=== PATIENT | female | born 1945 | race Caucasian/White ===

== ENCOUNTER 2017-10-06 12:06 | Emergency (ER) | payer OTHER ==
--- NOTE | 2017-10-06 15:40 | RAD REPORT ---
EXAM DESCRIPTION: CT - Pelvis Wo Cont - 10/06/2017 3:25 pm CLINICAL HISTORY: Trauma, right hip pain, radiculopathy. COMPARISON: None. TECHNIQUE: All CT scans are performed using dose optimization technique as appropriate and may inclu de automated exposure control or mA/KV adjustment according to patient size. FINDINGS: The bones are diffusely osteopenic. A small nonspecific sclerotic lesion in the S4 level i s identified. No acute fracture is seen. An osteochondroma is noted projecting from the posterior aspect of the rig ht iliac wing. Prominent lower lumbar degenerative changes noted with 11 mm anterolisthesis of L5 on S1. Orthopedic hardware is present in the lower lumbar vacuum disc degeneration is seen. Moderate fecal retention in the colon. IMPRESSION: Moderate lower lumbar spondylosis with postsurgical hardware in place. 11 mm degenerativ e anterolisthesis of L5 on S1 seen. Right iliac wing osteochondroma.
[2017-10-06] MEDS ORDERED: FENTANYL CITR 100 MCG/2 ML ONE (15:41)
[2017-10-06] MEDS ORDERED: LORAZEPAM 1 MG TABLET ONE (15:41)
--- NOTE | 2017-10-06 15:45 | RAD REPORT ---
EXAM DESCRIPTION: CT - Spine Lumbar Wo Con - 10/06/2017 3:25 pm CLINICAL HISTORY: Radiculopathy. COMPARISON: None. TECHNIQUE: Axial noncontrast CT imaging of the lumbar spine was performed with coronal and sagittal re-formatted images. All CT scans are performed using dose optimization technique as appropriate and may include automated exposure control or mA/KV adjustment according to patient size. FINDINGS: No acute lumbar spine fracture seen. Vacuum disc degeneration is present at L3-4, L4-5 and L5-S1. 10-11 mm degenerative anterolisthesis of L5 on S1 is seen. Orthopedic hardware is in place at L4-5 with postsurgical changes present. Streak artifact at these l evels limits intra-canal assessment. Aortic atherosclerosis noted. 2 cm left adrenal lesion with negative Hounsfield units noted, likely a benign adenoma. IMPRESSION: Moderate postsurgical and degenerative full lower lumbar spine findings are seen. 10-11 mm degenerative anterolisthesis of L5 on S1 is present. Intra-canal assessment is limited by streak a rtifact.
--- NOTE | 2017-10-06 16:06 | ER ---
Nurse's Notes [facility] Name: Devi Zimmerman Age: 72 yrs Sex: Female : 1945 Arrival Date: 10/06/2017 Time: 12:10 Bed 19 Private MD: Courtney Qiu Diagnosis: Low back pain;Radiculopathy, lumbar region Presentation: 10/06 12:18 Presenting complaint: Patient states: "I have right hip pain radiating down my right aa5 leg". Pt states " I've had surgery on my hip and my back so maybe I hurt myself without knowing it". Pt denies known injury. Transition of care: patient was not received from another setting of care. Onset of symptoms was October 05, 2017. Risk Assessment: Do you want to hurt yourself or someone else? Patient reports no desire to harm self or others. Initial Sepsis Screen: Does the patient meet any 2 criteria? No. Patient's initial sepsis screen is negative. Does the patient have a suspected source of infection? No. Patient's initial sepsis screen is negative. Care prior to arrival: None. 12:18 Method Of Arrival: Wheelchair aa5 12:18 Acuity: LOBO 4 aa5 Triage Assessment: 17:07 General: Appears. ae1 Historical: - Allergies: 12:21 Codeine; aa5 - PMHx: 12:21 ARF; Diabetes - NIDDM; Hepatitis; Hypertension; Arthritis; aa5 - PSHx: 12:21 back surgery; Hysterectomy; cataract surgery; aa5 - Immunization history:: Pneumococcal vaccine is up to date, Flu vaccine is up to date. - Social history:: Smoking status: Patient uses tobacco products, smokes one-half pack cigarettes per day. - Ebola Screening: : No symptoms or risks identified at this time. Screenin:06 Abuse screen: Denies threats or abuse. Nutritional screening: No deficits noted. ae1 Tuberculosis screening: No symptoms or risk factors identified. Fall Risk None identified. Vital Signs: 12:21 BP 113 / 94; Pulse 88; Resp 16 S; Temp 97.0(TE); Pulse Ox 96% on R/A; Weight 77.56 kg aa5 (R); Height 5 ft. 9 in. (175.26 cm) (R); Pain 10/10; 17:02 BP 142 / 79; Pulse 66; Resp 16; Pulse Ox 98% on R/A; ae1 12:21 Body Mass Index 25.25 (77.56 kg, 175.26 cm) aa5 ED Course: 12:10 Patient arrived in ED. mr 12:10 Coutrney Qiu MD is Private Physician. mr 12:20 Triage completed. aa5 12:20 Arm band placed on. aa5 13:00 Placed in gown. Bed in low position. Call light in reach. Side rails up X 1. Adult w/ ae1 patient. Pulse ox on. NIBP on. 13:55 Melly Johnson FNP-C is PHCP. snw 13:55 Stu Bean MD is Attending Physician. snw 14:43 Carlos Chávez, RN is Primary Nurse. ae1 15:[address] via stretcher. nj 15:25 CT Pelvis wo Cont In Process Unspecified. EDMS 15:25 CT Lumbar Spine Wo Con In Process Unspecified. EDMS 16:05 Courtney Qiu MD is Referral Physician. snw Administered Medications: 15:48 Drug: fentaNYL (PF) 50 mcg Route: IM; Site: right deltoid; ae1 17:03 Follow up: Response: Pain is decreased ae1 15:48 Drug: Ativan 1 mg Route: PO; ae1 17:03 Follow up: Response: Anxiety decreased ae1 Outcome: 16:05 Discharge ordered by . snw 17:07 Patient left the ED. dm5 Signatures: Dispatcher [employer] EDWI Alethea Mitchell RN RN dm5 Melly Johnson FNP-C ART GLASS DESIGNER-Jason Kerry Dunham mr BaltazarTorrie, RN RN aa5 Carlos Chávez, RN RN ae1 Armand Sexton ok
--- NOTE | 2017-10-06 16:06 | EDPHYS ---
Physician Documentation [facility] Name: Devi Zimmerman Age: 72 yrs Sex: Female : 1945 Arrival Date: 10/06/2017 Time: 12:10 Bed 19 Private MD: Courtney Qiu ED Physician Stu Bean HPI: 10/06 14:51 This 72 yrs old Female presents to ER via Wheelchair with complaints of Hip snw Pain, Leg Pain. 14:51 The patient or guardian reports decreased range of motion, pain. that occurred at home, snw holding right leg in flexed position, pain with radiation to right calf. The complaints affect the right low back. Onset: The symptoms/episode began/occurred suddenly, today. Modifying factors: The symptoms are alleviated by nothing, the symptoms are aggravated by extension, weight bearing. Severity of symptoms: At their worst the symptoms were moderate, severe. The patient has experienced similar episodes in the past, multiple times. has appt with Dr. Rojas. Historical: - Allergies: 12:21 Codeine; aa5 - PMHx: 12:21 ARF; Diabetes - NIDDM; Hepatitis; Hypertension; Arthritis; aa5 - PSHx: 12:21 back surgery; Hysterectomy; cataract surgery; aa5 - Immunization history:: Pneumococcal vaccine is up to date, Flu vaccine is up to date. - Social history:: Smoking status: Patient uses tobacco products, smokes one-half pack cigarettes per day. - Ebola Screening: : No symptoms or risks identified at this time. ROS: 14:50 Constitutional: Negative for fever, chills, and weight loss, Eyes: Negative for injury, snw pain, redness, and discharge, ENT: Negative for injury, pain, and discharge, Neck: Negative for injury, pain, and swelling, Cardiovascular: Negative for chest pain, palpitations, and edema, Respiratory: Negative for shortness of breath, cough, wheezing, and pleuritic chest pain, Abdomen/GI: Negative for abdominal pain, nausea, vomiting, diarrhea, and constipation, Back: Negative for injury and pain, pain to right upper hip and down to right calf : Negative for injury, bleeding, discharge, and swelling, Skin: Negative for injury, rash, and discoloration, Neuro: Negative for headache, weakness, numbness, tingling, and seizure. Exam: 14:49 Constitutional: This is a well developed, well nourished patient who is awake, alert, snw and in no acute distress. Head/Face: Normocephalic, atraumatic. Eyes: Pupils equal round and reactive to light, extra-ocular motions intact. Lids and lashes normal. Conjunctiva and sclera are non-icteric and not injected. Cornea within normal limits. Periorbital areas with no swelling, redness, or edema. ENT: Nares patent. No nasal discharge, no septal abnormalities noted. Tympanic membranes are normal and external auditory canals are clear. Oropharynx with no redness, swelling, or masses, exudates, or evidence of obstruction, uvula midline. Mucous membranes moist. Neck: Trachea midline, no thyromegaly or masses palpated, and no cervical lymphadenopathy. Supple, full range of motion without nuchal rigidity, or vertebral point tenderness. No Meningismus. Chest/axilla: Normal chest wall appearance and motion. Nontender with no deformity. No lesions are appreciated. Cardiovascular: Regular rate and rhythm with a normal S1 and S2. No gallops, murmurs, or rubs. Normal PMI, no JVD. No pulse deficits. Respiratory: Lungs have equal breath sounds bilaterally, clear to auscultation and percussion. No rales, rhonchi or wheezes noted. No increased work of breathing, no retractions or nasal flaring. Abdomen/GI: Soft, non-tender, with normal bowel sounds. No distension or tympany. No guarding or rebound. No evidence of tenderness throughout. Skin: Warm, dry with normal turgor. Normal color with no rashes, no lesions, and no evidence of cellulitis. MS/ Extremity: Pulses equal, no cyanosis. Neurovascular intact. Full, normal range of motion. Neuro: Awake and alert, GCS 15, oriented to person, place, time, and situation. Cranial nerves II-XII grossly intact. Motor strength 5/5 in all extremities. Sensory grossly intact. Cerebellar exam normal. Normal gait. Psych: Awake, alert, with orientation to person, place and time. Behavior, mood, and affect are within normal limits. 14:49 Back: pain, that is moderate, of the lumbar area, ROM is painful, with extension, muscle spasm, is appreciated in the right low back. Vital Signs: 12:21 BP 113 / 94; Pulse 88; Resp 16 S; Temp 97.0(TE); Pulse Ox 96% on R/A; Weight 77.56 kg aa5 (R); Height 5 ft. 9 in. (175.26 cm) (R); Pain 10/10; 17:02 BP 142 / 79; Pulse 66; Resp 16; Pulse Ox 98% on R/A; ae1 12:21 Body Mass Index 25.25 (77.56 kg, 175.26 cm) aa5 MDM: 14:41 Patient medically screened. snw 16:06 Data reviewed: vital signs, nurses notes. Data interpreted: Pulse oximetry: on room air snw is 96 %. Interpretation: acceptable. Counseling: I had a detailed discussion with the patient and/or guardian regarding: the historical points, exam findings, and any diagnostic results supporting the discharge/admit diagnosis, the presence of at least one elevated blood pressure reading (>120/80) during this emergency department visit, radiology results, the need for outpatient follow up, to return to the emergency department if symptoms worsen or persist or if there are any questions or concerns that arise at home. 10/06 14:47 Order name: CT Pelvis wo Cont; Complete Time: 15:43 snw 10/06 14:47 Order name: CT Lumbar Spine Wo Con; Complete Time: 15:48 snw Administered Medications: 15:48 Drug: fentaNYL (PF) 50 mcg Route: IM; Site: right deltoid; ae1 17:03 Follow up: Response: Pain is decreased ae1 15:48 Drug: Ativan 1 mg Route: PO; ae1 17:03 Follow up: Response: Anxiety decreased ae1 Disposition: 10/07 08:15 Co-signature as Attending Physician, Stu Bean MD I agree with the assessment and franco plan of care. Disposition: 10/06/17 16:05 Discharged to Home. Impression: Low back pain, Radiculopathy, lumbar region. - Condition is Stable. - Discharge Instructions: Back Pain, Adult, Chronic Back Pain, Lumbosacral Radiculopathy, Heat Therapy. - Prescriptions for orphenadrine citrate 100 mg Oral Tablet Sustained Release - take 1 tablet by ORAL route 2 times per day As needed; 20 tablet. Prednisone 20 mg Oral Tablet - take 1 tablet by ORAL route once daily for 5 days; 5 tablet. Tramadol 50 mg Oral Tablet - take 1 tablet by ORAL route every 8 hours as needed; 12 tablet. - Medication Reconciliation Form, Thank You Letter, Antibiotic Education, Prescription Opioid Use form. - Follow up: Courtney Qiu MD; When: Tomorrow; Reason: Recheck today's complaints, Continuance of care, Re-evaluation by your physician. Follow up: Emergency Department; When: As needed; Reason: Worsening of condition. Signatures: Dispatcher [employer] Alethea Escalante, RN RN dm5 Stu Bean MD MD cha Therrien, Shelly, PAN WASHER-C PAN WASHER-Csnw Torrie Baltazar, RN RN aa5 Carlos Chávez RN RN ae1 Corrections: (The following items were deleted from the chart) 10/06 17:07 16:05 10/06/2017 16:05 Discharged to Home. Impression: Low back pain; Radiculopathy, dm5 lumbar region. Condition is Stable. Forms are Medication Reconciliation Form, Thank You Letter, Antibiotic Education, Prescription Opioid Use. Follow up: Courtney Qiu; When: Tomorrow; Reason: Recheck today's complaints, Continuance of care, Re-evaluation by your physician. Follow up: Emergency Department; When: As needed; Reason: Worsening of condition. snw
== END 2017-10-06 17:07 | disposition home or self-care (01) ==
LOC: ER 12:06
DX: M54.16 Radiculopathy, lumbar region (principal); I10 Essential (primary) hypertension; Z88.5 Allergy status to narcotic agent; F17.210 Nicotine dependence, cigarettes, uncomplicated
CPT/HCPCS: 72131; 72192; J3010; 96372; 99284

== ENCOUNTER 2017-12-01 17:09 | Emergency (ER) | payer OTHER ==
[2017-12-01 19:40] LABS: Urine Blood 2+ (NEG); Urine Glucose NEGATIVE (NEG); Urine Protein 2+ (NEG)
[2017-12-01 19:48] LABS: Absolute Lymphocytes (CBC) 1.2 K/uL (0.7-4.9); Absolute Monocytes 1.3 K/uL (0.1-1.3); Absolute Neutrophil 12.7 K/uL (1.8-8.0); Basophils % 0.1 % (0-1.3); Eosinophils % 1.7 % (0-4.4); Hematocrit 41.4 % (36.0-45.0); Lymphocytes % 7.5 % (15.3-44.8); MCH 30.1 pg (27.0-35.0); MCV 91.8 fL (80-100); MPV 8.8 fL (7.6-11.3); Monocytes % 8.5 % (3.3-12.3); RBC Red Blood Cell Count 4.51 M/uL (3.86-4.86)
[2017-12-01 19:49] LABS: Urine Bacteria <20 /HPF (<20); Urine Culture Reflex Order NOT NEEDED
[2017-12-01 20:07] LABS: Albumin 2.3 g/dL (3.4-5.0); Bilirubin Total 0.2 mg/dL (0.2-1.0); Potassium 4.1 mmol/L (3.5-5.1); Protein, Total 7.7 g/dL (6.4-8.2); T3 Free 0.67 pg/mL (2.18-3.98); Thyroid Stimulating Hormone 1.39 uIU/mL (0.36-3.74)
--- NOTE | 2017-12-01 20:52 | RAD REPORT ---
EXAM DESCRIPTION: CT - Soft Tissue Neck W/Contr CLINICAL HISTORY: neck pain COMPARISON: No comparisons TECHNIQUE All CT scans are performed using dose optimization technique as appropriate and may includ e automated exposure control or mA/KV adjustment according to patient size. FINDINGS: Nasopharyngeal tissues are normal in appearance. Fossa Rosenmller are normal. Parapharyngeal fat triangles are symmetric. Tongue base structures are normal. Epiglottis and aryepiglottic folds are normal. Piriform sinuses are well aerated. The vocal cords are normal in appearance. Salivary glands are normal in appearance. Upper lung mitchell are clear. Moderate atherosclerosis of both carotid bulbs. IMPRESSION: No acute or worrisome abnormality is detected.
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
--- NOTE | 2017-12-01 21:17 | ER ---
Nurse's Notes [facility] Name: Devi Zimmerman Age: 72 yrs Sex: Female : 1945 Arrival Date: 12/01/2017 Time: 17:12 Bed 26 Private MD: Courtney Qiu Diagnosis: Acute laryngopharyngitis;Hypothyroidism, unspecified Presentation: 12/01 17:13 Presenting complaint: Patient states: im sweating unreal for the past 2 days, headache; hj denies fever, reports throat pain; reports fatigues for couple of weeks; S/P back surgery November 11; denies nausea and vomiting;. Transition of care: patient was not received from another setting of care. Onset of symptoms was December 01, 2017. Risk Assessment: Do you want to hurt yourself or someone else? Patient reports no desire to harm self or others. Initial Sepsis Screen: Does the patient meet any 2 criteria? No. Patient's initial sepsis screen is negative. Does the patient have a suspected source of infection? No. Patient's initial sepsis screen is negative. Care prior to arrival: None. 17:13 Method Of Arrival: Ambulatory 17:13 Acuity: LOBO 3 Triage Assessment: 17:19 General: Appears in no apparent distress. uncomfortable, Behavior is calm, cooperative, hj appropriate for age. Historical: - Allergies: 17:18 Codeine; hj - Home Meds: 17:18 acyclovir 800 mg Oral tab 1 tab 4 times per day [Active]; gemfibrozil 600 mg Oral tab 1 hj tab 2 times per day [Active]; carvedilol 6.25 mg oral tab 1 tab 2 times per day [Active]; Onglyza 5 mg oral tab 1 tab once daily [Active]; methocarbamol 500 mg oral tab 2 tabs nightly [Active]; amitriptyline 75 mg Oral tab 1 tab once daily [Active]; alendronate 35 mg oral tab 1 tab once wkly [Active]; ranitidine HCl 150 mg Oral cap 1 cap 2 times per day [Active]; diclofenac sodium 50 mg oral TbEC 1 tab 3 times per day [Active]; - PMHx: 17:18 ARF; Arthritis; Diabetes - NIDDM; Hepatitis; Hypertension; hj - PSHx: 17:18 back surgery; Hysterectomy; cataract surgery; hj - Immunization history:: Adult Immunizations up to date. - Social history:: Smoking status: Patient/guardian denies using tobacco, Patient/guardian denies using alcohol. - Ebola Screening: : Patient negative for fever greater than or equal to 101.5 degrees Fahrenheit, and additional compatible Ebola Virus Disease symptoms Patient denies exposure to infectious person Patient denies travel to an Ebola-affected area in the 21 days before illness onset. Screenin:19 Abuse screen: Denies threats or abuse. Denies injuries from another. Nutritional hj screening: No deficits noted. Tuberculosis screening: No symptoms or risk factors identified. Fall Risk None identified. Assessment: 17:19 Pain: Complains of pain in throat, head. Respiratory: Airway is patent Respiratory hj effort is even, unlabored, Respiratory pattern is regular, symmetrical, Breath sounds are clear. EENT: 17:20 EENT: Throat. hj 21:41 Reassessment: Patient appears in no apparent distress at this time. Patient and/or kr2 family updated on plan of care and expected duration. Pain level reassessed. Patient is alert, oriented x 3, equal unlabored respirations, skin warm/dry/pink. Patient denies pain at this time. Vital Signs: 17:20 BP 140 / 93; Pulse 86; Resp 18; Temp 98.7(O); Pulse Ox 100% on R/A; Weight 74.84 kg; hj Height 5 ft. 9 in. (175.26 cm); Pain 4/10; 19:30 BP 140 / 103 LA Supine (auto/reg); Pulse 89; Pulse Ox 100% on R/A; jp3 20:12 BP 125 / 75; Pulse 88; Resp 18; Pulse Ox 100% on R/A; Pain 2/10; mg2 21:42 BP 119 / 71; Pulse 86; Resp 16; Pulse Ox 99% on R/A; kr2 17:20 Body Mass Index 24.37 (74.84 kg, 175.26 cm) ED Course: 17:12 Patient arrived in ED. rg4 17:12 Courtney Qiu MD is Private Physician. rg4 17:15 Triage completed. hj 17:19 Arm band placed on right wrist. hj 17:19 Patient has correct armband on for positive identification. Bed in low position. Call light in reach. Side rails up X 1. 18:31 Michael Treadwell MD is Attending Physician. ps1 19:25 Initial lab(s) drawn, by ED staff, sent to lab. Urine collected: clean catch specimen, jp3 clear, arelis colored. 19:26 Rick Rock, RN is Primary Nurse. mg2 19:29 Inserted saline lock: 22 gauge in left forearm, using aseptic technique. Blood mg2 collected. 20:[address] sw 20:23 CT Soft Tissue Neck W/contr In Process Unspecified. EDMS 21:15 Courtney Qiu MD is Referral Physician. ps1 21:42 No provider procedures requiring assistance completed. IV discontinued, intact, kr2 bleeding controlled, No redness/swelling at site. Pressure dressing applied. Administered Medications: No medications were administered Outcome: 21:16 Discharge ordered by MD. ps1 21:43 Discharged to home ambulatory, with family. kr2 21:43 Condition: good 21:43 Discharge instructions given to patient, Instructed on discharge instructions, follow up and referral plans. medication usage, Demonstrated understanding of instructions, follow-up care, medications, Prescriptions given X 1. 21:43 Patient left the ED. kr2 Signatures: Dispatcher [employer] EDMS ParthSharyn Fernando Huynh RN RN Karen Jackson rg4 Josi Arita, RN RN kr2 Michael Treadwell MD MD ps1 Rick Rock, COLLETTE RN mg2 Baldo Leiva jp3 Corrections: (The following items were deleted from the chart) 17:21 17:20 Pulse 86bpm; Resp 18bpm; Pulse Ox 100% RA; Temp 98.7F Oral; 74.84 kg; Height 5 hj ft. 9 in.; BMI: 24.3; Pain 4/10; hj
== END 2017-12-01 21:43 | disposition home or self-care (01) ==
LOC: ER 17:09
DX: J06.0 Acute laryngopharyngitis (principal); E03.9 Hypothyroidism, unspecified; I10 Essential (primary) hypertension; E11.9 Type 2 diabetes mellitus without complications; N17.9 Acute kidney failure, unspecified; Z88.5 Allergy status to narcotic agent
CPT/HCPCS: 36415; 70491; 80053; 84439; 84443; 84481; 85025; 87070; 87081; Q9967; 81003; 81015; 99284

== ENCOUNTER 2017-12-16 11:53 | Emergency (ER) | payer OTHER ==
[2017-12-16] MEDS ORDERED: KETOROLAC 30 MG/ML INJ ONE (13:09)
[2017-12-16 13:28] LABS: Absolute Lymphocytes (CBC) 2.3 K/uL (0.7-4.9); Absolute Monocytes 0.6 K/uL (0.1-1.3); Eosinophils % 1.8 % (0-4.4); Hematocrit 41.9 % (36.0-45.0); Lymphocytes % 22.4 % (15.3-44.8); MCH 30.4 pg (27.0-35.0); MCV 90.8 fL (80-100); MPV 7.9 fL (7.6-11.3); Monocytes % 5.7 % (3.3-12.3); RBC Red Blood Cell Count 4.61 M/uL (3.86-4.86)
[2017-12-16 13:43] LABS: Potassium 4.5 mmol/L (3.5-5.1)
--- NOTE | 2017-12-16 14:55 | RAD REPORT ---
EXAM DESCRIPTION: MRI - Lumbar Spine Wo Con - 12/16/2017 2:37 pm CLINICAL HISTORY: Left leg numbness. Fell last night. COMPARISON: October 2017 TECHNIQUE: Sagittal T1, T2 and STIR weighted sequences were obtained. Axial T1 and T2 sequences were obtained through the lumbar disc levels. FINDINGS: Osteophytes and disc bulge are present at L1-2 mildly encroaching upon the thecal sac. Min imal narrowing of the neural foramina bilaterally is present. Disc bulge and osteophytes are present at L2-3. The thecal sac measures 10 millimeters. Mild to moder ate narrowing of the neural foramina bilaterally is present. A 20 x 8 x 15 mm (cc by AP by trans) right posterior-lateral extruded disc extends inferiorly at the L3-4 level. Facet hypertrophy and disc bulge result in moderate narrowing of the neural foramina bila terally. Postsurgical changes involve L4, L4-5 and L5. Disc bulge is present at L4-5 with moderate narrowing o f the neural foramina bilaterally. Mild anterior subluxation seen with disc bulge is present at L5-S1. The thecal sac measures 8 millime ters. Moderate narrowing of the neural foramina bilaterally is seen IMPRESSION: Large right posterolateral disc extrusion extends inferiorly at the L3-4 level
--- NOTE | 2017-12-16 15:56 | RAD REPORT ---
EXAM DESCRIPTION: RAD - Foot Left 3 View - 12/16/2017 3:49 pm CLINICAL HISTORY: Left Foot pain status post fall FINDINGS: No fracture or dislocation is seen. Hallux valgus and hammertoe deformities are noted. The bones are osteoporotic
--- NOTE | 2017-12-16 16:06 | ER ---
Nurse's Notes [facility] Name: Devi Zimmerman Age: 72 yrs Sex: Female : 1945 Arrival Date: 12/16/2017 Time: 11:55 Bed 13 Private MD: Courtney Qiu Diagnosis: Radiculopathy, lumbosacral region Presentation: 12/16 11:58 Presenting complaint: Patient states: She had back surgery on November [address] Rojas. Everything was going well, but she was walking the dog yesterday and her left leg went out under her and she fell. Then at 1800 yesterday her left leg started to feel numb. Reports that this is how her right leg felt before she had surgery. Reports right lower back pain that radiates to the right hip. Equal hand instructor trainer canine service, speech is clear. Care prior to arrival: None. Mechanism of Injury: Fall from standing position. Trauma event details: Injury occurred in the [facility]. 11:58 Acuity: LOBO 3 aj 11:58 Method Of Arrival: Ambulatory [facility] 12:05 Transition of care: patient was not received from another setting of care. Onset of aj1 symptoms was December 15, 2017. Risk Assessment: Do you want to hurt yourself or someone else? Patient reports no desire to harm self or others. Initial Sepsis Screen: Does the patient meet any 2 criteria? HR > 90 bpm. No. Patient's initial sepsis screen is negative. Does the patient have a suspected source of infection? No. Patient's initial sepsis screen is negative. Trauma Activation: Not Applicable Physician: ED Physician; Name: ; Notified At: ; Arrived At: Physician: General Surgeon; Name: ; Notified At: ; Arrived At: Physician: Radiology; Name: ; Notified At: ; Arrived At: Physician: Respiratory; Name: ; Notified At: ; Arrived At: Physician: Lab; Name: ; Notified At: ; Arrived At: Historical: - Allergies: 12:07 Codeine; aj1 - Home Meds: 12:07 acyclovir 800 mg Oral tab 1 tab 4 times per day [Active]; alendronate 35 mg Oral tab 1 aj1 tab once wkly [Active]; amitriptyline 75 mg Oral tab 1 tab once daily [Active]; carvedilol 6.25 mg Oral tab 1 tab 2 times per day [Active]; diclofenac sodium 50 mg Oral TbEC 1 tab 3 times per day [Active]; gemfibrozil 600 mg Oral tab 1 tab 2 times per day [Active]; levothyroxine 50 mcg tab 1 tab once daily [Active]; methocarbamol 500 mg Oral tab 2 tabs nightly [Active]; Onglyza 5 mg Oral tab 1 tab once daily [Active]; ranitidine HCl 150 mg Oral cap 1 cap 2 times per day [Active]; - PMHx: 12:07 ARF; Arthritis; Diabetes - NIDDM; Hepatitis; Hypertension; aj1 - PSHx: 12:07 back surgery; aj1 - Immunization history: Last tetanus immunization: unknown. - Social history:: Smoking status: Patient uses tobacco products, smokes one-half pack cigarettes per day. - Ebola Screening: : Patient denies travel to an Ebola-affected area in the 21 days before illness onset. Screenin:58 Abuse screen: Denies threats or abuse. Denies injuries from another. Tuberculosis aj1 screening: No symptoms or risk factors identified. 13:02 Nutritional screening: No deficits noted. Fall Risk Fall in past 12 months (25 points). ph No secondary diagnosis (0 pts). IV access (20 points). Ambulatory Aid- Crutches/Cane/Walker (15 pts). Gait- Weak (10 pts.). Mental Status- Oriented to own ability (0 pts). Total Estrella Fall Scale indicates High Risk Score (45 or more points). Fall prevention measures have been instituted. Side Rails Up X 2 Placed Close to Nursing Station Frequent Obs/Assessments Occuring Family Present and informed to notify staff if the need to leave the bedside As available patient and family educated on Fall Prevention Program and Strategies. Primary Survey: 12:15 Breathing/Chest: Respiratory pattern: regular, Respiratory effort: spontaneous, ph unlabored. Circulation: Skin color: pink, Skin temperature: warm, dry. Disability Alert. 16:25 Reassessment Airway Airway Breathing/Chest Respiratory pattern Regular Respiratory ph effort Spontaneous Unlabored Circulation Color [place] Temperature Warm Dry Disability Alert. Secondary Survey: 12:15 HEENT: No deficits noted. Gastrointestinal: No deficits noted. : No signs and/or ph symptoms were reported regarding the genitourinary system. Musculoskeletal: Reports pain in left leg and left lower back and left hip. Assessment: 11:58 General: Appears in no apparent distress. uncomfortable, Behavior is calm, cooperative, aj1 appropriate for age. Pain: Complains of pain in left low back and left hip. 11:58 Pain: Pain currently is 6 out of 10 on a pain scale. Quality of pain is described as aj1 sharp, Pain began last night at 1800. Neuro: Level of Consciousness is awake, alert, obeys commands, Graphic Design Teacher are equal bilaterally Speech is normal, Facial symmetry appears normal. Cardiovascular: Patient's skin is warm and dry. Respiratory: Airway is patent Respiratory effort is even, unlabored, Respiratory pattern is regular, symmetrical. 12:15 General: Appears in no apparent distress. uncomfortable, well groomed, Behavior is ph calm, cooperative, appropriate for age. Pain: Complains of pain in left lower back and left hip Pain radiates to left leg Quality of pain is described as sharp, shooting, Pain began suddenly. Neuro: Level of Consciousness is awake, alert, obeys commands, Oriented to person, place, Graphic Design Teacher are equal bilaterally Moves all extremities. Full function Speech is normal, Facial symmetry appears normal, Facial symmetry: tongue is midline, Reports numbness in left leg paresthesias in left leg. Cardiovascular: Capillary refill < 3 seconds in bilateral fingers Patient's skin is warm and dry. Respiratory: Airway is patent Respiratory effort is even, unlabored. GI: No signs and/or symptoms were reported involving the gastrointestinal system. Derm: Skin is intact, is healthy with good turgor, Skin is pink, warm \T\ dry. Musculoskeletal: Circulation, motion, and sensation intact. Range of motion: limited in left hip. 14:00 Reassessment: Patient appears in no apparent distress at this time. Patient and/or ph family updated on plan of care and expected duration. Pain level reassessed. Patient is alert, oriented x 3, equal unlabored respirations, skin warm/dry/pink. Pt ambulated to restroom, assisted by cane, w/ no difficulty, awaiting MRI, family at bedside. 15:05 Reassessment: Patient appears in no apparent distress at this time. Patient and/or ph family updated on plan of care and expected duration. Pain level reassessed. Patient is alert, oriented x 3, equal unlabored respirations, skin warm/dry/pink. Pt resting quietly, rates pain 4/10, awaiting MRI results, VSS, family at bedside. 16:22 Reassessment: Patient appears in no apparent distress at this time. Patient and/or ph family updated on plan of care and expected duration. Pain level reassessed. Patient is alert, oriented x 3, equal unlabored respirations, skin warm/dry/pink. Pt given MRI disc and d/c home w/ family. Vital Signs: 11:58 BP 130 / 92; Pulse 98; Resp 18 S; Temp 97.2(TE); Pulse Ox 98% on R/A; Weight 74.39 kg aj1 (R); Height 5 ft. 9 in. (175.26 cm) (R); Pain 6/10; 13:00 BP 129 / 94; Pulse 94; Resp 16; Pulse Ox 99% on R/A; ph 14:01 BP 127 / 87; Pulse 91; Resp 18; Pulse Ox 99% on R/A; ph 15:06 BP 134 / 91; Pulse 87; Resp 18; Pulse Ox 97% on R/A; ph 16:23 BP 128 / 84; Pulse 88; Resp 16; Temp 97.9; Pulse Ox 98% on R/A; Pain 4/10; ph 11:58 Body Mass Index 24.22 (74.39 kg, 175.26 cm) aj1 Wilmot Coma Score: 11:58 Eye Response: spontaneous(4). Verbal Response: oriented(5). Motor Response: obeys aj1 commands(6). Total: 15. 13:00 Eye Response: spontaneous(4). Verbal Response: oriented(5). Motor Response: obeys ph commands(6). Total: 15. 14:01 Eye Response: spontaneous(4). Verbal Response: oriented(5). Motor Response: obeys ph commands(6). Total: 15. 15:06 Eye Response: spontaneous(4). Verbal Response: oriented(5). Motor Response: obeys ph commands(6). Total: 15. 16:23 Eye Response: spontaneous(4). Verbal Response: oriented(5). Motor Response: obeys ph commands(6). Total: 15. Trauma Score (Adult): 11:58 Eye Response: spontaneous(1); Verbal Response: oriented(1); Motor Response: obeys aj1 commands(2); Systolic BP: > 89 mm Hg(4); Respiratory Rate: 10 to 29 per min(4); Tk Score: 15; Trauma Score: 12 13:00 Eye Response: spontaneous(1); Verbal Response: oriented(1); Motor Response: obeys ph commands(2); Systolic BP: > 89 mm Hg(4); Respiratory Rate: 10 to 29 per min(4); Tk Score: 15; Trauma Score: 12 14:01 Eye Response: spontaneous(1); Verbal Response: oriented(1); Motor Response: obeys ph commands(2); Systolic BP: > 89 mm Hg(4); Respiratory Rate: 10 to 29 per min(4); Wilmot Score: 15; Trauma Score: 12 15:06 Eye Response: spontaneous(1); Verbal Response: oriented(1); Motor Response: obeys ph commands(2); Systolic BP: > 89 mm Hg(4); Respiratory Rate: 10 to 29 per min(4); Wilmot Score: 15; Trauma Score: 12 16:23 Eye Response: spontaneous(1); Verbal Response: oriented(1); Motor Response: obeys ph commands(2); Systolic BP: > 89 mm Hg(4); Respiratory Rate: 10 to 29 per min(4); Tk Score: 15; Trauma Score: 12 ED Course: 11:55 Patient arrived in ED. mr 11:55 Courtney Qiu MD is Private Physician. mr 11:58 Patient has correct armband on for positive identification. aj1 11:58 Patient maintains SpO2 saturation greater than 95% on room air. aj1 12:03 Triage completed. aj1 12:07 Arm band placed on Patient placed in an exam room. aj1 12:10 Zulema Ireland, RN is Primary Nurse. ph 12:11 Bridger Camp MD is Attending Physician. tw4 13:01 Thermoregulation: warm blanket given to patient. ph 13:10 Initial lab(s) drawn, by me, sent to lab. Inserted saline lock: 22 gauge in right ph forearm, using aseptic technique. Blood collected. 14:09 Patient moved to MRI via wheelchair. em2 14:22 MRI Lumbar Spine wo Con In Process Unspecified. EDMS 14:44 MRI completed. Patient tolerated well. Patient moved back from MRI. ka 15:48 X-ray completed. Portable x-ray completed in exam room. Patient tolerated procedure ag1 well. 15:48 Foot Left 3 View XRAY In Process Unspecified. EDMS 16:04 Courtney Qiu MD is Referral Physician. tw4 16:05 Hawk Rojas MD is Referral Physician. tw4 16:23 No provider procedures requiring assistance completed. IV discontinued, intact, ph bleeding controlled, No redness/swelling at site. Pressure dressing applied. Administered Medications: 13:10 Drug: TORadol 30 mg Route: IVP; Site: left forearm; ph 13:45 Follow up: Response: No adverse reaction; Pain is decreased ph Intake: 13:01 PO: 0ml; Total: 0ml. ph 14:01 PO: 0ml; Total: 0ml. ph 16:23 PO: 0ml; Total: 0ml. ph Output: 13:01 Urine: 0ml; Total: 0ml. ph 14:01 Urine: 0ml; Total: 0ml. ph 16:23 Urine: 0ml; Total: 0ml. ph Outcome: 16:05 Discharge ordered by . tw4 16:26 Discharged to home ambulatory, with family. ph 16:26 Condition: good 16:26 Discharge instructions given to patient, Instructed on discharge instructions, follow up and referral plans. Demonstrated understanding of instructions, follow-up care. 16:26 Patient's length of stay in the Emergency Department was greater than 2 hours. Awaiting ph MRI and Xray resultsPatient's length of stay extended due to 16:29 Patient left the ED. ph Signatures: Dispatcher [employer] EDMN Cristina Fisher RN RN crystal1 Kerry Dunham EmmettJavid 2 Zulema Ireland RN RN ph Gallaway, Ashley ag1 Patricia Shaikh Terrence, MD MD tw4
--- NOTE | 2017-12-16 16:06 | EDPHYS ---
Physician Documentation [facility] Name: Devi Zimmerman Age: 72 yrs Sex: Female : 1945 Arrival Date: 12/16/2017 Time: 11:55 Bed 13 Private MD: Courtney Qiu ED Physician Bridger Camp HPI: 12/16 21:40 This 72 yrs old Female presents to ER via Ambulatory with complaints of Fall tw4 Injury, Back Pain. 21:40 Details of fall: The patient fell from a height, from an upright position. Onset: The tw4 symptoms/episode began/occurred just prior to arrival. Severity of symptoms: At their worst the symptoms were moderate, in the emergency department the symptoms are unchanged. The patient has not experienced similar symptoms in the past. 21:42 Associated injuries: The patient sustained injury to the low back. tw4 Historical: - Allergies: 12:07 Codeine; aj1 - Home Meds: 12:07 acyclovir 800 mg Oral tab 1 tab 4 times per day [Active]; alendronate 35 mg Oral tab 1 aj1 tab once wkly [Active]; amitriptyline 75 mg Oral tab 1 tab once daily [Active]; carvedilol 6.25 mg Oral tab 1 tab 2 times per day [Active]; diclofenac sodium 50 mg Oral TbEC 1 tab 3 times per day [Active]; gemfibrozil 600 mg Oral tab 1 tab 2 times per day [Active]; levothyroxine 50 mcg tab 1 tab once daily [Active]; methocarbamol 500 mg Oral tab 2 tabs nightly [Active]; Onglyza 5 mg Oral tab 1 tab once daily [Active]; ranitidine HCl 150 mg Oral cap 1 cap 2 times per day [Active]; - PMHx: 12:07 ARF; Arthritis; Diabetes - NIDDM; Hepatitis; Hypertension; aj1 - PSHx: 12:07 back surgery; aj1 - Immunization history: Last tetanus immunization: unknown. - Social history:: Smoking status: Patient uses tobacco products, smokes one-half pack cigarettes per day. - Ebola Screening: : Patient denies travel to an Ebola-affected area in the 21 days before illness onset. ROS: 21:40 Constitutional: Negative for fever, chills, and weight loss, Cardiovascular: Negative tw4 for chest pain, palpitations, and edema, Respiratory: Negative for shortness of breath, cough, wheezing, and pleuritic chest pain, Abdomen/GI: Negative for abdominal pain, nausea, vomiting, diarrhea, and constipation. 21:40 MS/extremity: Positive for 21:40 Neuro: Positive for numbness, weakness. Exam: 21:40 Constitutional: This is a well developed, well nourished patient who is awake, alert, tw4 and in no acute distress. Chest/axilla: Normal chest wall appearance and motion. Nontender with no deformity. No lesions are appreciated. Cardiovascular: Regular rate and rhythm with a normal S1 and S2. No gallops, murmurs, or rubs. Normal PMI, no JVD. No pulse deficits. Respiratory: Lungs have equal breath sounds bilaterally, clear to auscultation and percussion. No rales, rhonchi or wheezes noted. No increased work of breathing, no retractions or nasal flaring. Back: No spinal tenderness. No costovertebral tenderness. Full range of motion. 21:40 Neuro: Orientation: is normal, Mentation: is normal, Motor: Strength is 3/5 in the left knee, left wylie, anterior aspect of left ankle and dorsum of left foot, Sensation: numbness, that is moderate, of the left wylie, anterior aspect of left ankle and dorsum of left foot, 2 point discrimination is decreased in the left leg, temperature sense is decreased in the left leg. Vital Signs: 11:58 BP 130 / 92; Pulse 98; Resp 18 S; Temp 97.2(TE); Pulse Ox 98% on R/A; Weight 74.39 kg aj1 (R); Height 5 ft. 9 in. (175.26 cm) (R); Pain 6/10; 13:00 BP 129 / 94; Pulse 94; Resp 16; Pulse Ox 99% on R/A; ph 14:01 BP 127 / 87; Pulse 91; Resp 18; Pulse Ox 99% on R/A; ph 15:06 BP 134 / 91; Pulse 87; Resp 18; Pulse Ox 97% on R/A; ph 16:23 BP 128 / 84; Pulse 88; Resp 16; Temp 97.9; Pulse Ox 98% on R/A; Pain 4/10; ph 11:58 Body Mass Index 24.22 (74.39 kg, 175.26 cm) aj1 Tk Coma Score: 11:58 Eye Response: spontaneous(4). Verbal Response: oriented(5). Motor Response: obeys aj1 commands(6). Total: 15. 13:00 Eye Response: spontaneous(4). Verbal Response: oriented(5). Motor Response: obeys ph commands(6). Total: 15. 14:01 Eye Response: spontaneous(4). Verbal Response: oriented(5). Motor Response: obeys ph commands(6). Total: 15. 15:06 Eye Response: spontaneous(4). Verbal Response: oriented(5). Motor Response: obeys ph commands(6). Total: 15. 16:23 Eye Response: spontaneous(4). Verbal Response: oriented(5). Motor Response: obeys ph commands(6). Total: 15. Trauma Score (Adult): 11:58 Eye Response: spontaneous(1); Verbal Response: oriented(1); Motor Response: obeys aj1 commands(2); Systolic BP: > 89 mm Hg(4); Respiratory Rate: 10 to 29 per min(4); Montgomery Score: 15; Trauma Score: 12 13:00 Eye Response: spontaneous(1); Verbal Response: oriented(1); Motor Response: obeys ph commands(2); Systolic BP: > 89 mm Hg(4); Respiratory Rate: 10 to 29 per min(4); Montgomery Score: 15; Trauma Score: 12 14:01 Eye Response: spontaneous(1); Verbal Response: oriented(1); Motor Response: obeys ph commands(2); Systolic BP: > 89 mm Hg(4); Respiratory Rate: 10 to 29 per min(4); Montgomery Score: 15; Trauma Score: 12 15:06 Eye Response: spontaneous(1); Verbal Response: oriented(1); Motor Response: obeys ph commands(2); Systolic BP: > 89 mm Hg(4); Respiratory Rate: 10 to 29 per min(4); Montgomery Score: 15; Trauma Score: 12 16:23 Eye Response: spontaneous(1); Verbal Response: oriented(1); Motor Response: obeys ph commands(2); Systolic BP: > 89 mm Hg(4); Respiratory Rate: 10 to 29 per min(4); Montgomery Score: 15; Trauma Score: 12 MDM: 12:11 Patient medically screened. tw4 21:43 Data reviewed: vital signs, nurses notes. Data interpreted: monitoring manager: rhythm is tw4 normal sinus rhythm. Counseling: I had a detailed discussion with the patient and/or guardian regarding: the historical points, exam findings, and any diagnostic results supporting the discharge/admit diagnosis, lab results, radiology results. Physician consultation: Hawk Rojas MD regarding patient's condition, outpatient follow-up, and will see patient in office. Special discussion: I discussed with the patient/guardian in detail that at this point there is no indication for admission to the hospital. It is understood, however, that if the symptoms persist or worsen the patient needs to return immediately for re-evaluation. 12/16 12:55 Order name: CBC with Diff; Complete Time: 15:37 tw4 12/16 15:38 Interpretation: Normal except: PLT 553. tw4 12/16 12:55 Order name: BMP; Complete Time: 15:37 tw4 12/16 15:38 Interpretation: Normal except: CL 112; GLUC 122; BUN 24; CRE 1.50; GFR 34. tw4 12/16 12:55 Order name: Saline Lock; Complete Time: 15:01 tw4 12/16 12:55 Order name: MRI Lumbar Spine wo Con; Complete Time: 15:37 tw4 12/16 15:10 Order name: Foot Left 3 View XRAY; Complete Time: 16:03 ph Administered Medications: 13:10 Drug: TORadol 30 mg Route: IVP; Site: left forearm; ph 13:45 Follow up: Response: No adverse reaction; Pain is decreased ph Disposition: 12/16/17 16:05 Discharged to Home. Impression: Radiculopathy, lumbosacral region. - Condition is Stable. - Discharge Instructions: Lumbosacral Radiculopathy, Neuropathic Pain. - Medication Reconciliation Form, Thank You Letter, Antibiotic Education, Prescription Opioid Use form. - Follow up: Private Physician; When: As needed; Reason: Further diagnostic work-up, Recheck today's complaints, Re-evaluation by your physician. Follow up: Courtney Qiu MD; When: As needed; Reason: Further diagnostic work-up, Recheck today's complaints, Re-evaluation by your physician. Follow up: Hawk Rojas MD; When: As needed; Reason: Further diagnostic work-up, Recheck today's complaints, Re-evaluation by your physician. - Problem is new. - Symptoms are unchanged. Signatures: Dispatcher [employer] EDCristina June, RN RN aj1 Zulema Ireland RN RN ph Bridger Camp MD MD tw4 Corrections: (The following items were deleted from the chart) 16:29 16:05 12/16/2017 16:05 Discharged to Home. Impression: Radiculopathy, lumbosacral ph region. Condition is Stable. Forms are Medication Reconciliation Form, Thank You Letter, Antibiotic Education, Prescription Opioid Use. Follow up: Private Physician; When: As needed; Reason: Further diagnostic work-up, Recheck today's complaints, Re-evaluation by your physician. Follow up: Courtney Qiu; When: As needed; Reason: Further diagnostic work-up, Recheck today's complaints, Re-evaluation by your physician. Follow up: Hawk Rojas; When: As needed; Reason: Further diagnostic work-up, Recheck today's complaints, Re-evaluation by your physician. Problem is new. Symptoms are unchanged. tw4 21:42 21:40 Associated injuries: The patient sustained right wylie, anterior aspect of right tw4 ankle and dorsum of right foot, tw4
== END 2017-12-16 16:29 | disposition home or self-care (01) ==
LOC: ER 11:53
DX: M54.17 Radiculopathy, lumbosacral region (principal); I10 Essential (primary) hypertension; E11.9 Type 2 diabetes mellitus without complications; F17.210 Nicotine dependence, cigarettes, uncomplicated; W18.30XA Fall on same level, unspecified, initial encounter; Y93.89 Activity, other specified; Y92.9 Unspecified place or not applicable; Z88.5 Allergy status to narcotic agent
CPT/HCPCS: 36415; 72148; 80048; 85025; 96374; 99285

== ENCOUNTER 2021-12-02 15:20 | Emergency (ER) | payer OTHER ==
--- NOTE | 2021-12-02 17:11 | RAD REPORT ---
EXAM DESCRIPTION: RAD - Chest Single View - 12/02/2021 4:54 pm CLINICAL HISTORY: COUGH COMPARISON: Chest Single View dated 12/02/2016; CHEST PA AND LAT 2 VIEW dated 04/07/2015 FINDINGS: Lines: None. Lungs: No evidence of edema or pneumonia. Pleural: No significant pleural effusions or pneumothorax. Cardiac: The heart size is within normal limits. Bones: No acute fractures. Right shoulder arthroplasty. Severe left shoulder degenerative changes. Other: IMPRESSION: No acute cardiopulmonary disease.
--- NOTE | 2021-12-02 17:19 | EDPHYS ---
Physician Documentation [facility] Name: Devi Zimmerman Age: 76 yrs Sex: Female : 1945 Arrival Date: 12/02/2021 Time: 15:23 Bed 11 Private MD: CONNIE Physician Erica Stafford Historical: - Allergies: 12/02 15:35 Codeine; ll1 - PMHx: 15:35 Diabetes - NIDDM; Arthritis; ARF; Hepatitis; Hypertension; shingles; Anxiety; OCD; ll1 Hypercholesterolemia; - PSHx: 15:35 hysterectomy; I\T\D staph infection; back SX; eye SX; spinal stimulator; srews in pelvis; ll1 - Immunization history:: Client reports receiving the 2nd dose of the Covid vaccine. - Social history:: Smoking status: Patient reports the use of cigarette tobacco products, smokes one pack cigarettes per day. Vital Signs: 15:37 BP 159 / 95; Pulse 73; Resp 18; Temp 97.1; Pulse Ox 98% ; Weight 74.84 kg; Height 5 ft. ll1 9 in. (175.26 cm); Pain 9/10; 15:37 Body Mass Index 24.37 (74.84 kg, 175.26 cm) ll1 MDM: 15:43 Patient medically screened. [facility] 12/02 15:48 Order name: Chest Single View XRAY; Complete Time: 17:14 [facility] Administered Medications: No medications were administered Disposition Summary: 12/02/21 17:18 Discharge Ordered Location: Home [facility] Problem: new [facility] Symptoms: are unchanged [facility] Condition: Stable [facility] Diagnosis - Acute upper respiratory infection, unspecified [facility] Followup: [facility] - With: Private Physician - When: 2 - 3 days - Reason: Recheck today's complaints Discharge Instructions: - Discharge Summary Sheet [facility] - Upper Respiratory Infection, Adult [facility] - Viral Respiratory Infection [facility] Forms: - Medication Reconciliation Form [facility] - Thank You Letter [facility] - Antibiotic Education [facility] Prescriptions: - Tessalon Perles 100 mg Oral Capsule - take 1 capsule by ORAL route every 8 hours As needed; 15 capsule; Refills: 0, 7 Product Selection Permitted - Zithromax Z-Stalin 250 mg Oral Tablet - take 1 tablet by ORAL route as directed for 5 days Day 1 - take two (2) tablets jh7 one time. Day 2, 3, 4 , 5 take one (1) tablet once daily.; 6 tablet; Refills: 0, Product Selection Permitted Signatures: Dispatcher MedHoBebeto Maldonado RN RN ll1 Jayne Richardson, ENGINEERING [employer]PPLIES SALES [employer]ER[employer] SALES jh7
--- NOTE | 2021-12-02 17:19 | ER ---
Nurse's Notes [facility] Name: Devi Zimmerman Age: 76 yrs Sex: Female : 1945 Arrival Date: 12/02/2021 Time: 15:23 Bed 11 Private MD: Diagnosis: Acute upper respiratory infection, unspecified Presentation: 12/02 15:37 Chief complaint: Patient states: Congestion, cough for 5 days. No fever at home. ll1 Coronavirus screen: Vaccine status: Patient reports receiving the 2nd dose of the covid vaccine. Client denies travel out of the [place] in the last 14 days. congestion, cough unrelated to allergies, difficulty breathing, fatigue, muscle pain, runny nose, shortness of breath, Client presents with at least one sign or symptom that may indicate coronavirus-19. Standard/surgical mask placed on the client. Ebola Screen: Patient denies travel to an Ebola-affected area in the 21 days before illness onset. Resp Distress? No respiratory distress is noted at this time. Initial Sepsis Screen: Does the patient meet any 2 criteria? No. Patient's initial sepsis screen is negative. Does the patient have a suspected source of infection? No. Patient's initial sepsis screen is negative. Risk Assessment: Do you want to hurt yourself or someone else? Patient reports no desire to harm self or others. Onset of symptoms was November 27, 2021. 15:37 Method Of Arrival: Wheelchair ll1 15:37 Acuity: LOBO 3 ll1 Triage Assessment: 15:40 General: Appears ill, Behavior is cooperative, appropriate for age. Pain: Complains of ll1 pain in back Quality of pain is described as aching. EENT: Reports nasal congestion. Respiratory: Reports shortness of breath cough that is. Historical: - Allergies: 15:35 Codeine; ll1 - PMHx: 15:35 Diabetes - NIDDM; Arthritis; ARF; Hepatitis; Hypertension; shingles; Anxiety; OCD; ll1 Hypercholesterolemia; - PSHx: 15:35 hysterectomy; I\T\D staph infection; back SX; eye SX; spinal stimulator; srews in pelvis; ll1 - Immunization history:: Client reports receiving the 2nd dose of the Covid vaccine. - Social history:: Smoking status: Patient reports the use of cigarette tobacco products, smokes one pack cigarettes per day. Screenin:34 Abuse screen: Denies threats or abuse. Denies injuries from another. Nutritional ss screening: No deficits noted. Tuberculosis screening: Never had TB. Fall Risk None identified. Assessment: 16:34 General: Appears in no apparent distress. comfortable, Behavior is calm, cooperative. ss Neuro: Level of Consciousness is awake, alert, obeys commands, Oriented to person, place, time, situation, Speech is normal. Respiratory: Respiratory effort is even, unlabored, Respiratory pattern is regular, symmetrical. : No signs and/or symptoms were reported regarding the genitourinary system. Derm: Skin is pink, warm \T\ dry. normal. Musculoskeletal: Circulation, motion, and sensation intact. Range of motion: intact in all extremities, Swelling absent. 17:33 Reassessment: Patient appears in no apparent distress at this time. Patient and/or ss family updated on plan of care and expected duration. Pain level reassessed. Patient is alert, oriented x 3, equal unlabored respirations, skin warm/dry/pink. Vital Signs: 15:37 BP 159 / 95; Pulse 73; Resp 18; Temp 97.1; Pulse Ox 98% ; Weight 74.84 kg; Height 5 ft. ll1 9 in. (175.26 cm); Pain 9/10; 15:37 Body Mass Index 24.37 (74.84 kg, 175.26 cm) ll1 ED Course: 15:23 Patient arrived in ED. rg4 15:25 Jayne Richardson [facility]NP [facility] 7 15:25 Erica Stafford MD is Attending Physician. [facility] 15:34 Arm band placed on. ll1 15:40 Triage completed. ll1 16:33 Diane Mcintosh, COLLETTE is Primary Nurse. ss 16:34 Patient has correct armband on for positive identification. Bed in low position. Call ss light in reach. 16:56 Chest Single View XRAY In Process Unspecified. EDMS 17:33 No provider procedures requiring assistance completed. Patient did not have IV access ss during this emergency room visit. Administered Medications: No medications were administered Medication: 16:34 VIS not applicable for this client. ss Outcome: 17:18 Discharge ordered by . [facility] 17:33 Discharged to home ambulatory. ss 17:33 Condition: good 17:33 Discharge instructions given to patient, family, Instructed on discharge instructions, follow up and referral plans. medication usage, Demonstrated understanding of instructions, follow-up care, medications, Prescriptions given X 2. 17:35 Patient left the ED. Signatures: Dispatcher [employer] EDMS Diane Mcintosh RN Karen Ozuna rg4 Bebeto Lopez RN RN ll1 Jayne Richardson, HOTSHOT SUPERINTENDENT HOTSHOT SUPERINTENDENT jh7
[2021-12-02 18:31] VITALS: BP 159/95; TEMP 97.1; O2SAT 98
== END 2021-12-02 17:35 | disposition home or self-care (01) ==
LOC: ER 15:20
DX: J06.9 Acute upper respiratory infection, unspecified (principal); F17.210 Nicotine dependence, cigarettes, uncomplicated; E11.9 Type 2 diabetes mellitus without complications; F41.9 Anxiety disorder, unspecified; I10 Essential (primary) hypertension; Z88.5 Allergy status to narcotic agent
CPT/HCPCS: 71045; 99283

== ENCOUNTER 2023-02-10 05:32 | Day surgery (SDC) | payer OTHER ==
[2023-02-05 14:57] LABS: Absolute Lymphocytes (CBC) 2.7 K/uL (0.7-4.9); Hematocrit 48.3 % (36.0-45.0); Lymphocytes % 23.2 % (15.3-44.8); MCV 90.2 fL (80-100); MPV 7.8 fL (7.6-11.3); Platelets 242 thou/uL (152-406); RBC Red Blood Cell Count 5.35 M/uL (3.86-4.86)
[2023-02-05 15:17] LABS: Potassium 4.2 mEq/L (3.5-5.1)
[2023-02-10] MEDS ORDERED: CEFAZOLIN SODIUM 2 GM/VIAL ONE (05:56)
[2023-02-10] MEDS ORDERED: NA CHLORIDE 0.9% 1,000 ML ONE (05:56)
[2023-02-10] MEDS ORDERED: DEPO-MEDROL 40 MG/ML IM ONE (06:26)
[2023-02-10] MEDS ORDERED: THROMBIN 5000 UNITS/VIAL TOP ONE (06:26)
[2023-02-10] MEDS ORDERED: VANCOMYCIN 1 GM/VIAL ONE (06:26)
[2023-02-10] MEDS ORDERED: HYDROMORPHONE HCL 2 MG/ML inj ONE (06:54)
[2023-02-10] MEDS ORDERED: SUGAMMADEX SODIUM 200 MG/2 ML VIAL IV ONE (06:54)
[2023-02-10] MEDS ORDERED: SUCCINYLCHOLINE 20 MG/ML (10 ML) IV ONE (06:55)
[2023-02-10] MEDS ORDERED: propofoL 200 MG/20 ML VIAL IV ONE (07:01)
[2023-02-10] MEDS ORDERED: LIDOCAINE 2% MPF 5 ML VIAL ONE (07:02)
[2023-02-10] MEDS ORDERED: FENTANYL CITR 100 MCG/2 ML ONE ×2 (07:02→13:37)
[2023-02-10] MEDS ORDERED: dexAMETHasone 10 MG/ML VIAL ONE (07:56)
[2023-02-10] MEDS ORDERED: ONDANSETRON 4 MG/2 ML VIAL ONE (07:56)
[2023-02-10] MEDS ORDERED: EPHEDRINE SULF 50 MG/ML VIAL ONE (08:01)
[2023-02-10] MEDS ORDERED: GLYCOPYRROLATE 0.2 MG/ML SYR ONE (08:08)
[2023-02-10] MEDS ORDERED: Phenylephrine HCl 10 MG/ML 1 ML VIAL ONE (08:14)
[2023-02-10] MEDS: HYDROMORPHONE HCL 1 MG/ML INJ ONE ×2 (09:19→09:27)
--- NOTE | 2023-02-10 11:20 | RAD REPORT ---
EXAM DESCRIPTION: RAD - Fluoroscopy <1 Hour - 02/10/2023 11:08 am CLINICAL HISTORY: SPINAL STIMULATOR REMOVAL COMPARISON: URINARY BLADDER dated 10/05/2013 FINDINGS: Fluoroscopy time: 0.1 minutes
[2023-02-10 13:44] VITALS: BP 156/85; TEMP 97.1; O2SAT 92
== END 2023-02-10 10:30 | disposition home or self-care (01) ==
LOC: OR 05:32
PROVIDERS: ATTEND Orthopaedic Surgery
PROC: 00CY0ZZ Extirpation of Matter from Lumbar Spinal Cord, Open Approach (ICD-10-PCS; principal; 2023-02-10 07:00)
DX: G89.4 Chronic pain syndrome (principal); M47.816 Spondylosis without myelopathy or radiculopathy, lumbar region
CPT/HCPCS: 85025; 80048; 36415; 82947 ×2; 88300; 63662; 63688; J2704; J2371; J2001; J1170 ×2; J3010; J1100; J2405; J7030; 76000; J1030

== ENCOUNTER 2024-05-16 13:37 | Emergency (ER) | payer OTHER ==
--- OUTSIDE RECORDS SUMMARY | 2024-05-16 13:40 | XMS REPORT | Continuity of Care Document ---
Author Name Unknown Address [address] [place] [address] [facility] Address [address] [place] [address] Care Team Providers Care Assistant Professor Of Religion Name Role Phone MIQUEL IVY GA Primary Care Physician UnavailAUSTYN Terrazas Attending Clinician Unavailable DR KENNETH DELATORRE Attending Clinician Unavaila DR KENNETH Goodrich Attending Clinician Unavaila VAN Szymanski Attending Clinician Unavailable VAN RAINEY Attending Clinician Unavailable BALJEET CORREA Attending Clinician Unavailable Baljeet Correa NP Attending Clinician [phone] Gal BONDS Attending Clinician Unavailable Gal Gabriel Attending Clinician [phone] Madina HANLEY MD, John Attending Clinician [phone] Doctor Unassigned, Faison Attending Clinician MATILDE Jones Attending Clinician Unavailable Matilde Treadwell DO Attending Clinician [phone] Ingrid Kaufman LCSW Attending Clinician [phone] Yakov ROB, Jaylen Attending Clinician [phone] Brandi Lopez MD Attending Clinician [phone] DIONICIO CALZADA Attending Clinician Nida evelina Nielsen RN, Rick Nesbitt Attending Clinician Unavail able Only, Adc Test Attending Clinician Unavailable Rach Aguila MD Attending Clinician [phone] RACH AGUILA Attending Clinician Unavailabl e Pcp-Lab Attending Clinician Unavailable Nurse, Pcp Gen Med Bud Team Attending Clinici an Unavailable Unknown, Attending Attending Clinician Unavailab AUSTYN Ang Admitting Clinician Unavailable DR KENNETH DELATORRE Admitting Clinician UnavailBALJEET Zepeda Admitting Clinician Unavailable Gal BONDS Admitting Clinician Unavailable MATILDE TREADWELL Admitting Clinician Unavailable Madina HANLEY MD, Austyn Admitting Clinician Payers Payer Name Policy Type Policy Number Effective Date Expirati on Date Source MEDICARE PART A \T\ B [id number] 2011 00:00:00 [place] [id number] 2020 00:00:00 0500 [id number] 1959 00:00:00 0700 [id number] 1959 00:00:00 Problems Condition Name Condition Details Condition Category Status Onset Date Resolution Date Last Treatment Date Treating Clinician Comments Source 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 Added automatic ally from request for surgery [id number] [facility] Allergies, Adverse Reactions, Alerts Allergy Name Allergy Type Status Severity Reaction(s) Onset Date Inactive Date Treating Clinician Comments Source CODEINE DRUG INGREDI Active Rash 07-27 00:00: 00 [facility] Codeine Drug Allergy Active Rash 3-25 00:00: 00 [facility] Social History Social Habit Start Date Stop Date Quantity Comments Source History of tobacco use 1968-05-05 00:00:00 Cigarette Smoker [facility] Exposure to SARS-CoV-2 (event) 2022-03-01 00:00:00 2022-03-11 12:49:00 Not sure [facility] Tobacco use and exposure 2022-01-10 00:00:00 2022-01-10 00:00:00 Smokeless tobacco non-user [facility] Tobacco Comment 2022-01-10 00:00:00 2022-01-10 00:00:00 1.5 ppd [facility] History of Social function 2020-08-11 00:00:00 2020-08-11 00:00:00 [facility] Sex Ass[birth year] At 1945 00:00:00 1945 00:00:00 [facility] Smoking Status Start Date Stop Date Source Smokes tobacco daily 2022-01-10 00:00:00 [facility] Medications Ordered Medication Name Filled Medication Name Start Date Stop Date Current Medication? Ordering Clinician Indication Dosage Frequency Signature (SIG) Comments Components Source albuterol-i pratropium 20-100 mcg/actuati on inhaler 07-13 00:00: 00 Yes [id number] 1{puff} Inhale 1 Puff 4 (four) times daily. [facility] azithromyci n 250 mg tablet 07-13 00:00: 00 07-19 04:59 :00 No [id number] Take 2 tablets by mouth daily for 1 day, THEN 1 tablet daily for 4 days. [facility] ibuprofen (IBU) tablet 600 mg 2021-05 19:30: 00 03-11 19:33 :00 No 600mg 600 mg, Oral, ONCE, 1 dose, On 03/11/22 at 1330, CARLA [facility] naproxen sodium 550 mg tablet 12-25 00:00: 00 Yes [id number] 550mg Take 1 tablet by mouth in the morning and 1 tablet in the evening. Take with meals. [facility] methylPREDN ISolone 4 mg tablets 12-25 00:00: 00 07-13 00:00 :00 No [id number] Take by mouth SEE-INSTRU CTIONS. follow package directions [facility] famotidine 20 mg tablet 12 16:08: 31 Yes famotidine 20 mg tablet TK 1 T PO QD PRF REFLUX [facility] olopatadine (PAZEO) 0.7 % Drop 12 16:08: 31 Yes Pazeo 0.7 % eye drops PLACE 1 DROP IN BOTH EYES QD [facility] vilazodone (VIIBRYD) 10 mg Tab 12 16:08: 31 Yes Viibryd 10 mg tablet [facility] olopatadine (PAZEO) 0.7 % Drop 08-14 16:08: 31 Yes Pazeo 0.7 % eye drops PLACE 1 DROP IN BOTH EYES QD [facility] alendronate 35 mg tablet 24 00:00: 00 Yes [facility] traMADoL 50 mg tablet 07-25 00:00: 00 Yes TAKE 1 TABLET BY MOUTH TWICE DAILY NEEDED [facility] gabapentin 300 mg capsule 18 00:00: 00 Yes 300mg Take 300 mg by mouth 2 (two) times daily. [facility] HYDROcodone -acetaminop hen 10-325 mg tablet 11 00:00: 00 Yes 1{tbl} Take 1 tablet by mouth every 6 (six) hours as needed. [facility] rosuvastati n 10 mg tablet 07-09 00:00: 00 Yes TAKE 1 TABLET BY MOUTH EVERY DAY IN THE EVENING FOR HIGH CHOLESTERO L [facility] ONGLYZA 5 mg tablet 3 00:00: 00 Yes 1{tbl} Take 1 tablet by mouth daily. [facility] amitriptyli ne 100 mg tablet 2-03 00:00: 00 Yes 100mg Take 100 mg by mouth at bedtime. [facility] carvediloL 6.25 mg tablet 1 00:00: 00 Yes 6.25mg Take 6.25 mg by mouth 2 (two) times daily with meals. [facility] levothyroxi ne 50 mcg tablet 05-11 00:00: 00 Yes TAKE 1 TABLET BY MOUTH ONCE DAILY IN THE MORNING ON AN EMPTY STOMACH. [facility] Vital Signs Vital Name Observation Time Observation Value Comments S ource Body temperature 2023-08-20 19:34:00 36.72 Trupti [facility] Body weight 2023-08-20 19:34:00 74.844 kg [facility] BMI 2023-08-20 19:34:00 24.37 kg/m2 [facility] Systolic blood pressure 2023-07-14 21:40:00 185 mm[Hg] [facility] Diastolic blood pressure 2023-07-14 21:40:00 94 mm[Hg] [facility] Heart rate 2023-07-14 21:40:00 99 /min [facility] Respiratory rate 2023-07-14 21:40:00 16 /min [facility] Oxygen saturation in Arterial blood by Pulse oximetry 2023-07-14 21:40:00 97 /min [facility] Body temperature 2023-07-14 17:32:00 36.39 Trupti [facility] Body height 2023-07-14 17:32:00 175.3 cm [facility] Body weight 2023-07-14 17:32:00 75.297 kg [facility] BMI 2023-07-14 17:32:00 24.51 kg/m2 [facility] Systolic blood pressure 2022-03-11 20:15:00 153 mm[Hg] [facility] Diastolic blood pressure 2022-03-11 20:15:00 106 mm[Hg] [facility] Heart rate 2022-03-11 20:15:00 71 /min [facility] Respiratory rate 2022-03-11 20:15:00 18 /min [facility] Oxygen saturation in Arterial blood by Pulse oximetry 2022-03-11 20:15:00 95 /min [facility] Body temperature 2022-03-11 18:50:00 37 Trupti [facility] Body height 2022-03-11 18:50:00 175.3 cm [facility] Body weight 2022-03-11 18:50:00 74.844 kg [facility] BMI 2022-03-11 18:50:00 24.37 kg/m2 [facility] Body temperature 2022-01-10 15:58:00 36.5 Trupti [facility] Body height 2022-01-10 15:58:00 175.3 cm [facility] Body weight 2022-01-10 15:58:00 79.833 kg [facility] BMI 2022-01-10 15:58:00 25.99 kg/m2 [facility] Procedures Procedure Date / Time Performed Performing Clinicia n Source DEXA PERIPHERAL (FOREARM) 2023-08-26 20:28:22 Roscoe Tucker [facility] CT LUMBAR SPINE WO CONTRAST 2023-08-26 19:07:43 Roscoe Tucker [facility] XR SCOLIOSIS SURVEY 2 VW 2023-08-20 18:59:00 Van Rainey [facility] URINALYSIS 2023-07-14 19:39:00 Baljeet Correa [facility] ASSIGNMENT OF BENEFITS 2023-07-14 19:36:25 Docto r Unassigned, Faison [facility] XR CHEST 1 VW 2023-07-14 19:19:45 Baljeet Correa [facility] RAPID INFLUENZA A/B 2023-07-14 18:02:00 Baljeet Correa [facility] RAPID RSV 2023-07-14 18:02:00 Baljeet Correa [facility] COVID-19 (ID NOW RAPID TESTING) 2023-07-14 18:02:00 Baljeet Correa [facility] CONSENT/REFUSAL FOR DIAGNOSIS AND TREATMENT 2023-07-14 17:06:33 Doctor Unassigned, Faison [facility] XR ELBOW >3 VW RIGHT 2022-03-11 19:34:29 Gal Bonds [facility] CONSENT/REFUSAL FOR DIAGNOSIS AND TREATMENT 2022-03-11 18:40:21 Doctor Unassigned, Faison [facility] Encounters Start Date/Time End Date/Time Encounter Type Admission Type Attending Clinicians Care Facility Care Department Encounter ID Source 2021-03-04 10:02:12 Inpatient AUSTYN PAINTER [facility] [id number] [facility] 2024-01-20 10:45:00 2024-01-20 23:59:00 Outpatient KENNETH BULL RICHARD [facility] [id number] [facility] 2024-01-20 10:45:00 2024-01-20 23:59:00 Outpatient Sebastian DELATORRE KENNETH JARVIS [facility] [id number] [facility] 2023-08-26 13:40:44 2023-08-26 23:59:00 Outpatient Kathy RAINEY VAN RODRIGUEZ [facility] [id number] [facility] 2023-08-26 13:30:00 2023-08-26 23:59:00 Hospital Encounter Van Rainey [facility] 1.2.840.114 350.1.13.10 4.2.7.2.686 [id number] [facility] 2023-08-26 13:12:30 2023-08-26 13:29:00 Hospital Encounter Van Rainey [facility] 1.2.840.114 350.1.13.10 4.2.7.2.686 [id number] [facility] 2023-08-26 13:10:48 2023-08-26 13:11:00 Hospital Encounter Van Rainey [facility] 1.2.840.114 350.1.13.10 4.2.7.2.686 [id number] [facility] 2023-08-20 13:37:31 2023-08-20 23:59:00 Outpatient R VAN RAINEY JAMES [facility] [id number] [facility] 2023-08-20 13:37:31 2023-08-20 23:59:00 Hospital Encounter Van Rainey [facility] 1.2.840.114 350.1.13.10 4.2.7.2.686 [id number] [facility] 2023-08-20 14:00:00 2023-08-20 15:20:41 Office Visit Van Rainey [facility] 1.2.840.114 350.1.13.10 4.2.7.2.686 [id number] [facility] 2023-07-14 12:36:00 2023-07-14 16:46:00 Emergency X BALJEET CORREA [facility] ERT [id number] [facility] 2023-07-14 12:36:00 2023-07-14 16:46:00 Emergency Baljeet Correa [facility] 1.2.840.114 350.1.13.10 4.2.7.2.686 [id number] [facility] 2022-03-11 12:53:00 2022-03-11 14:18:00 Emergency X CAMMIE, K [facility] ERT [id number] [facility] 2022-03-11 12:53:00 2022-03-11 14:18:00 Emergency Gal oBnds [facility] 1.2.840.114 350.1.13.10 4.2.7.2.686 [id number] [facility] 2022-01-10 10:16:59 2022-01-10 23:59:00 Outpatient R AUSTYN PAINTER [facility] [id number] [facility] 2022-01-10 10:16:59 2022-01-10 23:59:00 Hospital Encounter Austyn Painter [facility] PAVRASHADJAMEL 1.2.840.114 350.1.13.10 4.2.7.2.686 [id number] [facility] 2022-01-10 10:16:59 2022-01-10 23:59:00 Outpatient AUSTYN KENNEY [facility] [id number] [facility] 2022-01-10 10:30:00 2022-01-10 12:13:59 Office Visit Austyn Painter [facility] PAVREUBEN 1.2.840.114 350.1.13.10 4.2.7.2.686 [id number] [facility] 2022-01-10 00:00:00 2022-01-10 00:00:00 Orders Only Doctor Unassigned, Faison [facility] 1.2.840.114 350.1.13.10 4.2.7.2.686 [id number] [facility] 2021-12-25 09:58:00 2021-12-25 12:37:00 Emergency X MATILDE TREADWELL [facility] ERT [id number] [facility] 2021-12-25 09:58:00 2021-12-25 12:37:00 Emergency Matilde Treadwell [facility] 1.2840.114 350.1.13.10 4.2.7.2.686 [id number] [facility] 2021-12-25 00:00:00 2021-12-25 00:00:00 Orders Only Doctor Unassigned, Faison [facility] 1.2.840.114 350.1.13.10 4.2.7.2.686 [id number] [facility] 2021-05-10 12:50:06 2021-05-10 23:59:00 Outpatient R AUSTYN PAINTER [facility] [id number] [facility] 2021-05-10 12:50:06 2021-05-10 23:59:00 Hospital Encounter Austyn Painter [facility] KYM 1.2.840.114 350.1.13.10 4.2.7.2.686 [id number] [facility] 2021-05-10 12:50:00 2021-05-10 13:46:40 Office Visit Austyn Painter [facility] 1.2.840.114 350.1.13.10 4.2.7.2.686 [id number] [facility] 2021-05-10 12:50:00 2021-05-10 12:50:00 Outpatient R AUSTYN PAINTER [facility] [id number] [facility] 2021-05-03 11:00:00 2021-05-03 11:00:00 Outpatient R AUSTYN PAINTER [facility] [id number] [facility] 2021-04-05 00:00:00 2021-04-05 00:00:00 Orders Only Doctor Unassigned, Faison [facility] 1.2.840.114 350.1.13.10 4.2.7.2.686 [id number] [facility] 2021-02-28 00:00:00 2021-02-28 00:00:00 Orders Only Doctor Unassigned, Faison [facility] 1.2.840.114 350.1.13.10 4.2.7.2.686 [id number] [facility] 2021-02-08 00:00:00 2021-02-08 00:00:00 Orders Only Doctor Unassigned, Faison [facility] 1.2.840.114 350.1.13.10 4.2.7.2.686 [id number] [facility] 2021-02-07 00:00:00 2021-02-07 00:00:00 Telephone Austyn Painter [facility] 1.2.840.114 350.1.13.10 4.2.7.2.686 [id number] [facility] 2021-02-06 00:00:00 2021-02-06 00:00:00 Telephone Madina [facility] 1.2.840.114 350.1.13.10 4.2.7.2.686 [id number] [facility] 2021-01-31 00:00:00 2021-01-31 00:00:00 Orders Only Doctor Unassigned, Faison [facility] 1.2.840.114 350.1.13.10 4.2.7.2.686 [id number] [facility] 2021-01-18 00:00:00 2021-01-18 00:00:00 Orders Only Doctor Unassigned, Faison [facility] 1.2.840.114 350.1.13.10 4.2.7.2.686 [id number] [facility] 2020-12-27 00:00:00 2020-12-27 00:00:00 Orders Only Doctor Unassigned, Faison [facility] 1.2.840.114 350.1.13.10 4.2.7.2.686 [id number] [facility] 2020-12-18 00:00:00 2020-12-18 00:00:00 Telephone Austyn Painter [facility] 1.2.840.114 350.1.13.10 4.2.7.2.686 [id number] [facility] 2020-12-14 00:00:00 2020-12-14 00:00:00 Orders Only Doctor Unassigned, Faison [facility] 1.2.840.114 350.1.13.10 4.2.7.2.686 [id number] [facility] 2020-12-08 00:00:00 2020-12-08 00:00:00 Telephone MadinaAustyn monzon [facility] 1.2.840.114 350.1.13.10 4.2.7.2.686 [id number] [facility] 2020-12-04 00:00:00 2020-12-04 00:00:00 Orders Only Doctor Unassigned, Faison [facility] 1.2.840.114 350.1.13.10 4.2.7.2.686 [id number] [facility] 2020-11-29 00:00:00 2020-11-29 00:00:00 Patient Outreach Ingrid Kaufman [facility] 1.2.840.114 350.1.13.10 4.2.7.2.686 [id number] [facility] 2020-11-24 00:00:00 2020-11-24 00:00:00 Telephone Austyn Painter [facility] 1.2840.114 350.1.13.10 4.2.7.2.686 [id number] [facility] 2020-11-23 10:50:44 2020-11-23 23:59:00 Hospital Encounter Austyn Painter [facility] 1.2.840.114 350.1.13.10 4.2.7.2.686 [id number] [facility] 2020-11-23 10:38:31 2020-11-23 11:50:37 Office Visit Austyn Painter [facility] 1.2840.114 350.1.13.10 4.2.7.2.686 [id number] [facility] 2020-11-23 11:00:00 2020-11-23 11:00:00 Outpatient R MADINA AUSTYN [facility] [id number] [facility] 2020-11-22 00:00:00 2020-11-22 00:00:00 Abstract Jaylen Nagy [facility] 1.2.840.114 350.1.13.10 4.2.7.2.686 [id number] [facility] 2020-10-19 00:00:00 2020-10-19 00:00:00 Orders Only Doctor Unassigned, Faison [facility] 1.2.840.114 350.1.13.10 4.2.7.2.686 [id number] [facility] 2020 10:45:03 2020 23:59:00 Hospital Encounter MadinaAustyn monzon [facility] 1.2.840.114 350.1.13.10 4.2.7.2.686 [id number] [facility] 2020 10:40:27 2020 12:57:20 Office Visit Austyn Painter [facility] 1.2.840.114 350.1.13.10 4.2.7.2.686 [id number] [facility] 2020 11:00:00 2020 11:00:00 Outpatient R AUSTYN PAINTER [facility] [id number] [facility] 2020-09-27 00:00:00 2020-09-27 00:00:00 Telephone Austyn Painter [facility] 1.2.840.114 350.1.13.10 4.2.7.2.686 [id number] [facility] 2020-09-22 00:00:00 2020-09-22 00:00:00 Abstract Brandi Lopez [facility] 1.2.840.114 350.1.13.10 4.2.7.2.686 [id number] [facility] 2020-09-07 11:00:00 2020-09-07 11:00:00 Outpatient R [facility] [id number] [facility] 2020-09-04 00:00:00 2020-09-04 00:00:00 Telephone Austyn Painter [facility] 1.2.840.114 350.1.13.10 4.2.7.2.686 [id number] [facility] 2020-08-24 08:57:15 2020-08-24 23:59:00 Hospital Encounter Austyn Painter [facility] 1.2.840.114 350.1.13.10 4.2.7.2.686 [id number] [facility] 2020-08-24 08:42:38 2020-08-24 09:58:51 Office Visit Austyn Painter [facility] 1.2.840.114 350.1.13.10 4.2.7.2.686 [id number] [facility] 2020-08-24 09:10:00 2020-08-24 09:10:00 Outpatient R AUSTYN PAINTER [facility] [id number] [facility] 2020-08-17 00:00:00 2020-08-17 00:00:00 Telephone Austyn Painter [facility] 1.2.840.114 350.1.13.10 4.2.7.2.686 [id number] [facility] 2020-08-17 00:00:00 2020-08-17 00:00:00 Abstract Brandi Lopez [facility] 1.2.840.114 350.1.13.10 4.2.7.2.686 [id number] [facility] 2020-08-16 11:20:00 2020-08-16 11:20:00 Outpatient DIONICIO SALEH [facility] [id number] [facility] 2020-08-16 00:00:00 2020-08-16 00:00:00 Transition of Care Rick Nielsen 1.2.840.114 350.1.13.10 4.2.7.2.686 [id number] [facility] 2020-08-11 07:01:00 2020-08-14 16:08:00 Hospital Encounter [facility] 1.2.840.114 350.1.13.10 4.2.7.2.686 [id number] [facility] 2020-08-14 00:00:00 2020-08-14 00:00:00 Telephone [facility] 1.2.840.114 350.1.13.10 4.2.7.2.686 [id number] [facility] 2020-08-11 09:23:00 2020-08-11 15:04:00 Surgery [facility] 1.2.840.114 350.1.13.10 4.2.7.2.686 [id number] [facility] 2020-08-09 09:00:00 2020-08-09 09:00:00 Outpatient AUSTYN KENNEY [facility] [id number] [facility] 2020-08-09 08:44:13 2020-08-09 08:59:13 Laboratory Only Only, Adc Test Rach Aguila [facility] 1.2840.114 350.1.13.10 4.2.7.2.686 [id number] [facility] 2020-08-09 08:30:00 2020-08-09 08:30:00 Outpatient RACH BONILLA [facility] [id number] [facility] 2020-08-03 10:08:28 2020-08-03 23:59:00 [facility] 1.2.840.114 350.1.13.10 4.2.7.2.686 [id number] [facility] 2020-08-03 11:31:28 2020-08-03 11:46:28 Ict Help Desk Officer Visit Pcp-Lab Austyn Painter [facility] 1.2.840.114 350.1.13.10 4.2.7.2.686 [id number] [facility] 2020-08-03 11:03:33 2020-08-03 11:18:33 Nurse Visit Nurse, Pcp Gen Med Farrell Team Unknown, Attending Austyn Painter [facility] 1.2840.114 350.1.13.10 4.2.7.2.686 [id number] [facility] 2020-08-03 08:43:31 2020-08-03 09:59:20 Office Visit Austyn Painter [facility] 1.2840.114 350.1.13.10 4.2.7.2.686 [id number] [facility] 2020-08-03 08:50:00 2020-08-03 08:50:00 Outpatient R MADINAAUSTYN AGUILAR [facility] [id number] [facility] 2020-08-02 09:20:00 2020-08-02 23:59:00 Hospital Encounter Austyn Painter [facility] [id number] [facility] 2020-08-02 00:00:00 2020-08-02 00:00:00 Outpatient R AUSTYN PAINTER [facility] [id number] [facility] 2020-07-27 08:09:05 2020-07-27 23:59:00 Hospital Encounter Austyn Painter [facility] [id number] [facility] 2020-07-27 09:52:48 2020-07-27 10:07:48 Ict Help Desk Officer Visit Pcp-Lab Austyn Painter [facility] [id number] [facility] 2020-07-27 07:52:48 2020-07-27 09:50:19 Office Visit Austyn Painter [facility] [id number] [facility] 2020-07-27 07:30:00 2020-07-27 07:30:00 Outpatient R AUSTYN PAINTER [facility] [id number] [facility] 2020-07-27 00:00:00 2020-07-27 00:00:00 Orders Only Doctor Unassigned, [facility] [id number] [facility] 2020-07-27 00:00:00 2020-07-27 00:00:00 Telephone Austyn Painter [facility] [id number] [facility] Results Test Description Test Time Test Comments Results Resul t Comments Source CT LUMBAR SPINE WO CONTRAST 2023-08-05 3 20:57:37 EXAM: CT LUMBAR SPINE WO CONTRAST HISTORY: prior L spine fusion . TECHNIQUE: Routine unenhanced CT of the lumbar spine was performed. Coronaland sagittal reformats were obtained. COMPARISON: None. FINDINGS: Postsurgical changes of L4-L5 posterior spinal fusion and laminectomies andtrans-sacral iliac fusion hardware. There is superior subsidence of the [id number] abutting the superior margin of the vertebral body. Normal lumbar lordosis is preserved. Grade 1 retrolisthesis of L2 over L3.Grade 1 anterior listhesis of L3 over L4 and L5 over S1. The vertebralbodies are normal in height and in otherwise normal alignment. No acutefracture or traumatic dislocation is visualized. Moderate to severe degenerative changes of the lumbar spine with multileveldisc height loss, vacuum phenomena, marginal osteophytes, facet arthrosisendplate sclerosis and Schmorl's node. Diffuse osteopenia. Intact cortical margins of the visualized sacrum and pelvic bones.Degenerative changes of bilateral sacroiliac joints. Large lobulated hypodense lesion seen in the left adrenal gland, measuresroughly 2 x 2.8 x 3.7 cm. Few bilateral renal cortical cyst noted. Atherosclerotic calcifications of the abdominal aorta and iliac vessels. [facility] XR SCOLIOSIS SURVEY 2 2023-08-04 7 19:38:58 EXAM: XR SCOLIOSIS SURVEY 2 HISTORY: pain COMPARISON: None. [facility] XR CHEST 1 2023-07-04 1 19:52:07 EXAM: XR CHEST 1 07/14/2023 2:09 PM HISTORY: 77 years old Female with fever TECHNIQUE: Portable AP view of the chest. COMPARISON: Chest radiograph 08/03/2020 FINDINGS: Lines/tubes and devices: None. Lungs and pleura: The lungs are well-expanded and clear. No focalconsolidation, pneumothorax, or pleural effusion is seen. Cardiomediastinal: The cardiomediastinal silhouette is normal in size.Atherosclerotic calcification of the aortic knob.. Musculoskeletal: No acute osseous abnormality. Thoracic spondylosis. Rightshoulder arthroplasty is noted. Degenerative changes of the left shoulderjoint. [facility]
[2024-05-16 14:02] LABS: Absolute Eosinophils 0.2 K/uL (0-0.5); Absolute Lymphocytes (CBC) 1.7 K/uL (0.7-4.9); Absolute Monocytes 0.5 K/uL (0.1-1.3); Absolute Neutrophil 6.9 K/uL (1.8-8.0); Basophils % 0.5 % (0-1.3); Eosinophils % 2.5 % (0-4.4); Hematocrit 43.7 % (36.0-45.0); Hemoglobin 14.5 g/dL (12.0-15.0); Lymphocytes % 18.3 % (15.3-44.8); MCH 29.9 pg (27.0-35.0); MCHC 33.3 g/dL (32.0-36.0); MCV 89.7 fL (80-100); MPV 8.6 fL (7.6-11.3); Monocytes % 5.7 % (3.3-12.3); PT Prothrombin Time 11.8 SECONDS (9.4-12.5); Platelets 188 thou/uL (152-406); Protime INR 1.06; RBC Red Blood Cell Count 4.87 M/uL (3.86-4.86); Red Cell Distribution Width 14.5 % (12.1-15.2)
[2024-05-16 14:15] LABS: Albumin/Globulin Ratio 0.9 (1.1-1.8); Bilirubin Direct 0.2 mg/dL (0-0.2); Bilirubin Indirect, Calculated 0.3 mg/dL (0.2-0.8); Bilirubin Total 0.5 mg/dL (0.2-1.0); Globulin 3.2 g/dL (2.3-3.5); Protein, Total 6.2 g/dL (6.4-8.2); Troponin High Sensitivity 12.8 pg/mL (<58.9)
[2024-05-16] MEDS ORDERED: LEVETIRACETAM 500 MG/5 ML VIAL IV ONE (14:21)
[2024-05-16] MEDS ORDERED: Nicardipine/NS 25 MG/250 ML KIT IV ONE (14:21)
[2024-05-16] MEDS ORDERED: NA CHLORIDE 0.9% 100 ML ONE (14:21)
--- NOTE | 2024-05-16 14:21 | RAD REPORT ---
EXAM: CT brain without contrast HISTORY: COLLAPSE, UNRESPONSIVE COMPARISON: None TECHNIQUE: Multiple contiguous axial images were obtained and a CT of the brain without contrast. Sag ittal and coronal reformats were performed. FINDINGS: Extensive subarachnoid hemorrhage centered on the left more than right parafalcine frontal sulci, ext ending within the basal cisterns, sylvian fissures, and opercular and parietal sulci. Intraventricular extension within the lateral ventricles, third ventricle, and to lesser extent the f ourth ventricle. Left basal frontal subdural hemorrhage measuring 9 mm in thickness. This extends along the left front oparietal convexity, measuring up to 3 mm in thickness. Ill-defined 1 cm hypoattenuating focus just above the suprasellar cistern, could represent an underly ing aneurysm. Mild hydrocephalus. Extensive subsegmental opacification limits evaluation of the stephens-white matter j unction. Minimal tonsillar ectopia suspected not exceeding 6 mm, although beam hardening artifact at the level of the foramen magnum limits evaluation. The calvarium is intact. Patient is intubated, with fluid opacification of the nasopharynx. Mild left frontoparietal scalp swelling IMPRESSION: Extensive subarachnoid hemorrhage with frontal predominance, with extension along the basal cisterns, and the ventricular system. Mild hydrocephalus. Left basal frontal and frontoparietal convexity subdural hemorrhages, the former measuring up to 9 mm in thickness. Ill-defined 1 cm hypoattenuating focus just above the suprasellar cistern, could represent an underly ing aneurysm. Consider additional evaluation by CT angiogram of the brain if clinically indicated. EXAM: CT of the cervical spine without contrast HISTORY: COLLAPSE, UNRESPONSIVE COMPARISON: CT neck 12/01/2017 TECHNIQUE: Multiple contiguous axial images were obtained in a CT of the cervical spine without contr ast. Sagittal and coronal reformats were performed. FINDINGS: The vertebral bodies demonstrate normal height and alignment. No evidence of acute fracture or subluxation.. Multilevel degenerative changes with disc height loss at C4-5 and C5-6, and corresponding vertebral joint and facet arthropathy contributing to moderate to severe neural foramin al narrowing more pronounced at C4-5. No prevertebral soft tissue swelling is seen. The posterior facets are well aligned. Normal alignment of the skull base with the cervical spine is seen. The lung apices are unremarkable. IMPRESSION: No evidence of acute osseous abnormality of the cervical spine. Multilevel degenerative changes as above. THIS REPORT CONTAINS FINDINGS THAT MAY BE CRITICAL TO PATIENT CARE. The findings were verbally commun icated via telephone to Jason Padgett MD on 05/16/2024 2:18 PM.
--- NOTE | 2024-05-16 14:37 | RAD REPORT ---
EXAM: CT CHEST, ABDOMEN AND PELVIS WITHOUT CONTRAST CLINICAL INDICATION: Female, 78 years old. [facility] MAIN collapse, unresponsive Bed Name: 4 TECHNIQUE: CT chest, abdomen and pelvis was performed, without IV contrast, as per department protoco l. Axial, sagittal and coronal reconstructions were obtained. One or more of the following dose reduction techniques were used: Automated exposure control, adjustment of the mA and/or kV according to the patient size, and/or iterative reconstruction. Unless otherwise specified, incidental findings do not require dedicated imaging follow-up. COMPARISON: No prior exam. FINDINGS: The lack of intravenous contrast limits the sensitivity of this exam for evaluation of solid visceral organs, vascular structures, and retroperitoneum. Chest: LOWER NECK/CHEST WALL: Visualized thyroid gland and soft tissues are normal. LUNGS AND AIRWAYS: Airways are clear. Left more than right subsegmental dependent atelectatic changes . No nodules. PLEURA: Trace pleural effusions larger on the left. No pneumothorax. Hemidiaphragms are normally posi tioned. MEDIASTINUM AND LYMPH NODES: No mediastinal mass or fluid collection. Normal size mediastinal, hilar, and axillary lymph nodes. THORACIC AORTA: Normal caliber and configuration. PULMONARY ARTERIES: Normal caliber. HEART: Unremarkable. Abdomen/Pelvis LIVER: Normal in size and contour. No focal lesion. GALLBLADDER/BILE DUCTS: No biliary ductal dilatation. PANCREAS: No mass, ductal dilation, or andrey-pancreatic fluid. SPLEEN: Normal size. No focal lesion. ADRENALS: Stable low-density left adrenal nodule today measuring 2.3 cm, with density less than 10 Ho unsfield units, suggestive of a benign adenoma. KIDNEYS AND URETERS: Small cortical cysts and bilateral extrarenal pelvis more dominant of the right. No hydronephrosis. GASTROINTESTINAL TRACT: Enteric tube in place terminating in the distal stomach Stomach is non-dilate d. Small bowel has normal course and caliber. No colonic wall thickening or pericolonic inflammatory changes. PERITONEUM: No free fluid. LYMPH NODES: No lymphadenopathy. ABDOMINAL AORTA AND OTHER VESSELS: Normal caliber aorta and IVC. URINARY BLADDER: Normal contour. REPRODUCTIVE ORGANS: No pathologic process. MUSCULOSKELETAL: Hardware fixation of the sacroiliac joints, left hip, and lower lumbar spine. ADDITIONAL FINDINGS: None IMPRESSION: No acute traumatic abnormalities in the chest, abdomen, or pelvis. Incidental findings as above, including trace bilateral pleural effusions larger on the left.
--- NOTE | 2024-05-16 14:38 | EDPHYS ---
Physician Documentation [facility] Name: Devi Zimmerman Age: 78 yrs Sex: Female : 1945 Arrival Date: 05/16/2024 Time: 13:37 Bed 4 Private MD: ED Physician Jason Padgett HPI: 05/16 14:26 This 78 yrs old Female presents to ER via EMS with complaints of Fall Injury, rn Unresponsive. 14:27 The patient presents with decreased mental status, decreased responsiveness. Onset: The rn symptoms/episode began/occurred just prior to arrival. Possible causes: unknown. It is unknown whether or not the patient has had similar symptoms in the past. EMS brought in patient after severe headache, then unresponsive with possible seizure. Intubated in the field by EMS using etomidate and rocuronium. EMS states that she was initially able to mumble some answers but then was unresponsive with agonal breathing.. Historical: - Allergies: 13:56 Codeine; iw - PMHx: 13:56 Anxiety; ARF; Arthritis; Diabetes - NIDDM; Hepatitis; Hypercholesterolemia; iw Hypertension; shingles; ocd; - PSHx: 13:56 back sx; I\T\D staph infection; hysterectomy; spinal stimulator; srews in pelvis; eye sx; iw - Immunization history:: Adult Immunizations unknown. - Infectious Disease History:: unknown . - Family history:: not pertinent. - Hospitalizations: : No recent hospitalization is reported. - Social history:: Smoking status: unknown. ROS: 14:29 Unable to obtain ROS due to altered mental status, rn Exam: 14:29 Constitutional: Intubated patient, GCS 3 Eyes: Pupils 5 mm, sluggish but reactive rn progressive care: Regular rate and rhythm. No pulse deficits. Respiratory: No spontaneous breaths over the vent. Abdomen/GI: Soft, nondistended Neuro: GCS 3 18:00 ECG was reviewed by the Attending Physician. rn Vital Signs: 13:37 BP 209 / 107; Pulse 61; Resp 20 A; Pulse Ox 100% on ETT vent; aa5 14:00 BP 218 / 126; Pulse 64; Resp 20 A; Pulse Ox 100% on ETT vent; aa5 14:10 BP 186 / 106; Pulse 60; Resp 20 A; Pulse Ox 100% on ETT vent; aa5 14:27 BP 197 / 108; Pulse 60; Resp 20 A; Temp 97.8(R); Pulse Ox 100% on ETT vent; aa5 14:32 BP 194 / 98; Pulse 62; Resp 20 A; Pulse Ox 100% on ETT vent; aa5 14:37 BP 173 / 93; Pulse 62; Resp 20 A; Pulse Ox 100% on ETT vent; rs5 14:40 BP 171 / 80; Pulse 63; Resp 20 A; Pulse Ox 100% on ETT vent; aa5 14:41 Temp 97.9(R); Weight 75 kg; Height 5 ft. 9 in. ; aa5 14:45 BP 178 / 92; Pulse 71; Resp 20 A; Pulse Ox 100% on ETT vent; aa5 14:50 BP 165 / 74; Pulse 66; Resp 20 A; Pulse Ox 100% on ETT vent; aa5 14:54 BP 153 / 77; Pulse 66; Resp 20 A; Pulse Ox 100% on ETT vent; aa5 15:00 BP 150 / 80; Pulse 74; Resp 20 A; Pulse Ox 100% on ETT vent; aa5 15:10 BP 143 / 69; Pulse 66; Resp 20 A; Pulse Ox 100% on ETT vent; aa5 15:20 BP 146 / 69; Pulse 66; Resp 20 A; Pulse Ox 100% on ETT vent; aa5 15:30 BP 145 / 69; Pulse 72; Resp 20 A; Pulse Ox 100% on ETT vent; aa5 15:35 BP 153 / 78; Pulse 76; Resp 20 A; Pulse Ox 100% on ETT vent; aa5 14:41 Body Mass Index 24.42 (75.00 kg, 175.26 cm) aa5 MDM: 13:41 Medical Screening Exam initiated rn 14:36 Differential Diagnosis: CVA, intracranial bleed, volume depletion. Data reviewed: vital rn signs, nurses notes, lab test result(s), radiologic studies, CT scan, and as a result, I will admit patient. Consideration of Admission/Observation Patient was admitted/placed on observation. Escalation of care including admission/observation considered. Counseling: I had a detailed discussion with the patient and/or guardian regarding the historical points, exam findings, and any diagnostic results supporting the discharge/admit diagnosis, lab results, radiology results, the need to transfer to another facility, for higher level of care, [facility] does not immediately have the required specialist. ED course: I personally spent 35 minutes engaged in work directly related to the individual patient's care. This does not include any time spent performing procedures. The patient has been deemed critically ill because of altered mental status in the setting of severe hypertension, subarachnoid hemorrhage, subdural hemorrhage, management of ventilator as well as organization of transfer for higher level of care. IV Cardene initiated for stat blood pressure control.. 14:36 Independent interpretation of the following test(s) in the Emergency Department CT rn Scan: My interpretation is CT head without contrast shows obvious subarachnoid hemorrhage per my interpretation. 05/16 13:42 Order name: Basic Metabolic Panel; Complete Time: 14:25 rn 05/16 13:42 Order name: CBC with Diff; Complete Time: 14:25 rn 05/16 13:42 Order name: LFT's; Complete Time: 14:25 rn 05/16 13:42 Order name: NT PRO-BNP; Complete Time: 14:25 rn 05/16 13:42 Order name: PT-INR; Complete Time: 14:25 rn 05/16 13:42 Order name: Troponin HS; Complete Time: 14:25 rn 05/16 14:00 Order name: Glucose, Ancillary Testing; Complete Time: 14:25 EDMS 05/16 13:42 Order name: XRAY Chest (1 view) rn 05/16 13:49 Order name: Chest Abd Pelvis Wo Con; Complete Time: 14:58 EDMS 05/16 13:51 Order name: Head C Spine Mpr Wo Con; Complete Time: 14:25 EDMS 05/16 13:42 Order name: EKG; Complete Time: 13:42 rn 05/16 13:42 Order name: Cardiac monitoring; Complete Time: 14:19 rn 05/16 13:42 Order name: EKG - Nurse/Tech; Complete Time: 14:19 rn 05/16 13:42 Order name: IV Saline Lock; Complete Time: 13:52 rn 05/16 13:42 Order name: Labs collected and sent; Complete Time: 13:52 rn 05/16 13:42 Order name: O2 Per Protocol; Complete Time: 13:52 rn 05/16 13:42 Order name: O2 Sat Monitoring; Complete Time: 13:52 rn 05/16 13:42 Order name: Glucose Level; Complete Time: 13:52 rn 05/16 15:02 Order name: [place]; Complete Time: 15:09 rn EC:00 Rate is 61 beats/min. Rhythm is regular. QRS [place] is Normal. [place] interval is normal. QRS rn interval is normal. QT interval is normal. No Q waves. T waves are Normal. No ST changes noted. Clinical impression: Normal ECG. Interpreted by me. Reviewed by me. Administered Medications: 14:25 Drug: Keppra IV 1000 mg IV at calculated rate once Route: IV; Rate: calculated rate; rs5 Site: left forearm; 14:40 Follow up: IV Status: Completed infusion aa5 14:27 Drug: niCARdipine IV 5 mg/hr IV at calculated rate See Administration Instructions; rs5 (Standard concentration 25 mg / 250 mL NS); Recommended max rate 15 mg/hr; Titrate 2.5 mg/hr as often as every 15 minutes to achieve goal (see titration policy); Goal parameter SBP less than 160 mmHg Route: IV; Rate: calculated rate; Site: right forearm; 14:37 Follow up: Rate change 7.5 mg/hr aa5 15:10 Follow up: Rate change 5 mg/hr aa5 15:48 Follow up: IV Status: Infusion continued upon transfer aa5 15:44 Drug: Midazolam IVP or IV 3 mg IVP once {Note: VO received at 1543 .} Route: IVP; Site: aa5 left forearm; 15:48 Follow up: Response: Pt now sedated. aa5 19:34 Not Given (not available prior to departure (from pharmacy)): [id number]% 1 g/kg 500 ml aa5 IV at calculated rate once; Administer over 30 to 60 minutes Point of Care Testing: Blood Glucose: 13:49 Blood Glucose: 153 mg/dL; aa5 Ranges: Critical Glucose Levels:Adult <50 mg/dl or >400 mg/dl <40 mg/dl or >180 mg/dl Disposition: 14:36 Critical Care:. rn Disposition Summary: 05/16/24 14:37 Transfer Ordered Notes: Transfer Location: [facility] rn Reason: Higher level of care rn Condition: Stable rn Problem: new rn Symptoms: are unchanged rn Accepting Physician: (05/16/24 15:58) ll1 Diagnosis - Nontraumatic subarachnoid hemorrhage, unspecified rn - Traumatic subdural hemorrhage with loss of consciousness of unspecified duration rn - Other seizures rn - Essential (primary) hypertension rn Forms: - Medication Reconciliation Form rn - SBAR form burn nurse time excluding procedures: 14:36 Critical care time: Bedside Care: 35 minutes. Total time: 35 minutes rn Signatures: Dispatcher [employer] EDMS Dede Nagy, RN RN Jason Greenfield MD MD rn Calderon, Audri, RN RN aa5 Bebeto Lopez RN RN ll1 Reid Ferrera RN RN rs5 Corrections: (The following items were deleted from the chart) 13:42 13:42 BASIC METABOLIC PANEL+C.LAB.BRZ ordered. EDMS EDMS 13:42 13:42 CBC+H.LAB.BRZ ordered. EDMS EDMS 13:42 13:42 HEPATIC FUNCTION+C.LAB.BRZ ordered. EDMS EDMS 13:42 13:42 PROBNP+C.LAB.BRZ ordered. EDMS EDMS 13:42 13:42 PROTIME (+INR)+COAG.LAB.BRZ ordered. EDMS EDMS 13:42 13:42 Troponin High Sensitivity+C.LAB.BRZ ordered. EDMS EDMS 13:49 13:42 Head C Spine Cap Wo Con+CT.RAD.BRZ ordered. EDMS EDMS 15:58 14:37 rn ll1
--- NOTE | 2024-05-16 14:38 | ER ---
Nurse's Notes [facility] Name: Devi Zimmerman Age: 78 yrs Sex: Female : 1945 Arrival Date: 05/16/2024 Time: 13:37 Bed 4 Private MD: Diagnosis: Nontraumatic subarachnoid hemorrhage, unspecified;Traumatic subdural hemorrhage with loss of consciousness of unspecified duration;Other seizures;Essential (primary) hypertension Presentation: 05/16 13:37 Acuity: LOBO 1 iw 13:37 Chief complaint: EMS states: "Pt's daughter reported pt c/o bad headache and collapsed, aa5 pt was only breathing 8bpm upon our arrival and we intubated her". Pt was administered 10mg Etomidate, 70mg Rocuronium by EMS for intubation, EMS also attempted to administer 10 mg of labetalol FORM SETTER HELPER but IV infiltrated. Pt does not take any anticoagulants. 13:37 Coronavirus screen: At this time, the client does not indicate any symptoms associated aa5 with coronavirus-19. Ebola Screen: Unable to complete the Ebola screening because:. Initial Sepsis Screen: Does the patient meet any 2 criteria? No. Patient's initial sepsis screen is negative. Does the patient have a suspected source of infection? No. Patient's initial sepsis screen is negative. Risk Assessment: Do you want to hurt yourself or someone else? Unable to obtain. Onset of symptoms was May 16, 2024. 13:55 Care prior to arrival: Assisted ventilation, Oral intubation, Medication(s) given: iw Normal saline infusion, 500 mL, IV initiated. 20 GA, in the right forearm, Glucose check: 100. 13:55 Method Of Arrival: EMS: [facility] iw Historical: - Allergies: 13:56 Codeine; iw - PMHx: 13:56 Anxiety; ARF; Arthritis; Diabetes - NIDDM; Hepatitis; Hypercholesterolemia; iw Hypertension; shingles; ocd; - PSHx: 13:56 back sx; I\\T\\D staph infection; hysterectomy; spinal stimulator; srews in pelvis; eye sx; iw - Immunization history:: Adult Immunizations unknown. - Infectious Disease History:: unknown . - Family history:: not pertinent. - Hospitalizations: : No recent hospitalization is reported. - Social history:: Smoking status: unknown. Screenin:37 [facility] ED Fall Risk Assessment (Adult) History of falling in the last 3 months, aa5 including since admission Yes- fall prone (multiple falls) (3 pts) Confusion or Disorientation Yes (5 pts) Intoxicated or Sedated Yes (3 pts) Impaired Gait No (0 pts) Mobility Assist Device Used No (0 pt) Altered Elimination Yes (1 pt) Score/Fall Risk Level 3 or more points = High Risk Oriented to surroundings, Maintained a safe environment, Educated pt \\T\\ family on fall prevention, incl call for assistance when getting out of bed. Abuse screen: unable to assess. Nutritional screening: No deficits noted. Tuberculosis screening: unable to assess . Assessment: 13:37 General: Behavior is unresponsive. Pain: Unable to use pain scale. Patient is aa5 unresponsive. Neuro: Level of Consciousness is unresponsive, unable to follow commands. Left pupil is round, 4mm in size and non-reactive to light. Right pupil is 3mm in size, round, and reactive to light.. Cardiovascular: Heart tones S1 S2 present Rhythm is regular. Respiratory: Airway via oral intubation Respiratory effort is assisted Breath sounds are clear bilaterally. GI: Abdomen is round non-distended. : No signs and/or symptoms were reported regarding the genitourinary system. Derm: Skin is pink, warm \\T\\ dry. dark purple bruising noted to left upper eyelid. Musculoskeletal: Range of motion: intact in all extremities. 13:54 Reassessment: pt transported to Ct via stretcher, intubated, with RT and RN, on monitor.iw 14:00 Reassessment: No changes from previously documented assessment. Neuro: Level of aa5 Consciousness is unresponsive, not following commands, pt not moving. . Respiratory: Airway via oral intubation Respiratory effort is assisted. Derm: Skin is pink, warm \\T\\ dry. 14:45 Reassessment: Pt's family at bedside . aa5 14:45 Reassessment: No changes from previously documented assessment. Neuro: Level of aa5 Consciousness is unresponsive, not following commands . Respiratory: Airway via oral intubation Respiratory effort is assisted. Derm: Skin is pink, warm \\T\\ dry. 15:43 Reassessment: EMS at bedside. Pt noted to be moving all 4 extremities and opening eyes, aa5 MD was notified. . 15:48 Reassessment: Pt now sedated . aa5 Vital Signs: 13:37 BP 209 / 107; Pulse 61; Resp 20 A; Pulse Ox 100% on ETT vent; aa5 14:00 BP 218 / 126; Pulse 64; Resp 20 A; Pulse Ox 100% on ETT vent; aa5 14:10 BP 186 / 106; Pulse 60; Resp 20 A; Pulse Ox 100% on ETT vent; aa5 14:27 BP 197 / 108; Pulse 60; Resp 20 A; Temp 97.8(R); Pulse Ox 100% on ETT vent; aa5 14:32 BP 194 / 98; Pulse 62; Resp 20 A; Pulse Ox 100% on ETT vent; aa5 14:37 BP 173 / 93; Pulse 62; Resp 20 A; Pulse Ox 100% on ETT vent; rs5 14:40 BP 171 / 80; Pulse 63; Resp 20 A; Pulse Ox 100% on ETT vent; aa5 14:41 Temp 97.9(R); Weight 75 kg; Height 5 ft. 9 in. ; aa5 14:45 BP 178 / 92; Pulse 71; Resp 20 A; Pulse Ox 100% on ETT vent; aa5 14:50 BP 165 / 74; Pulse 66; Resp 20 A; Pulse Ox 100% on ETT vent; aa5 14:54 BP 153 / 77; Pulse 66; Resp 20 A; Pulse Ox 100% on ETT vent; aa5 15:00 BP 150 / 80; Pulse 74; Resp 20 A; Pulse Ox 100% on ETT vent; aa5 15:10 BP 143 / 69; Pulse 66; Resp 20 A; Pulse Ox 100% on ETT vent; aa5 15:20 BP 146 / 69; Pulse 66; Resp 20 A; Pulse Ox 100% on ETT vent; aa5 15:30 BP 145 / 69; Pulse 72; Resp 20 A; Pulse Ox 100% on ETT vent; aa5 15:35 BP 153 / 78; Pulse 76; Resp 20 A; Pulse Ox 100% on ETT vent; aa5 14:41 Body Mass Index 24.42 (75.00 kg, 175.26 cm) aa5 ED Course: 13:37 Patient has correct armband on for positive identification. Placed in gown. Bed in low aa5 position. Side rails up X2. Client placed on continuous cardiac and pulse oximetry monitoring. NIBP monitoring applied. general agent on. Pulse ox on. NIBP on. 13:37 Arm band placed on. aa5 13:37 Maintain EMS IV. Gauge \\T\\ site: 20G to R FA . Flushed with 10 mL NS. aa5 13:37 ET tube, 7mm, placement at 22 at the teeth. Assist ventilation with ventilator. aa5 13:41 Patient arrived in ED. rn 13:41 Jason Padgett MD is Attending Physician. rn 13:45 NGT: inserted 18 [address]. verified placement of air over stomach, verified return of gastric aa5 contents, OG tube placed. 13:50 Inserted saline lock: 20 gauge in left forearm, using aseptic technique. aa5 13:55 Triage completed. iw 14:03 Chest Abd Pelvis Wo Con In Process Unspecified. EDMS 14:03 Head C Spine Mpr Wo Con In Process Unspecified. EDMS 14:06 Torrie Baltazar, COLLETTE is Primary Nurse. aa5 14:13 XRAY Chest (1 view) In Process Unspecified. EDMS 14:25 Bravo cath inserted, using sterile technique, 16 Fr., by spindle sander, balloon inflated, to aa5 gravity drainage, returned clear yellow urine. Patient tolerated well. 14:39 called [facility] talked to Chris. sp 15:00 No provider procedures requiring assistance completed. aa5 15:[address] Chris Albert accepted pt to [facility] ER 1507 Admin approval by Jimy Pascal TC to the ER report number [phone] or [phone]. faxed demographics to transfer center 1510 called [facility] for transport to [facility]. 15:48 Patient transferred, IV remains in place. aa5 16:54 called Shamir Sparks (son) \\T\\[phone] to let him know we had several items of the sp patients belongings. (glasses, watch, and clothes) will be in the security office. Administered Medications: 14:25 Drug: Keppra IV 1000 mg IV at calculated rate once Route: IV; Rate: calculated rate; rs5 Site: left forearm; 14:40 Follow up: IV Status: Completed infusion aa5 14:27 Drug: niCARdipine IV 5 mg/hr IV at calculated rate See Administration Instructions; rs5 (Standard concentration 25 mg / 250 mL NS); Recommended max rate 15 mg/hr; Titrate 2.5 mg/hr as often as every 15 minutes to achieve goal (see titration policy); Goal parameter SBP less than 160 mmHg Route: IV; Rate: calculated rate; Site: right forearm; 14:37 Follow up: Rate change 7.5 mg/hr aa5 15:10 Follow up: Rate change 5 mg/hr aa5 15:48 Follow up: IV Status: Infusion continued upon transfer aa5 15:44 Drug: Midazolam IVP or IV 3 mg IVP once {Note: VO received at 1543 .} Route: IVP; Site: aa5 left forearm; 15:48 Follow up: Response: Pt now sedated. aa5 19:34 Not Given (not available prior to departure (from pharmacy)): [id number]% 1 g/kg 500 ml aa5 IV at calculated rate once; Administer over 30 to 60 minutes Medication: 15:48 VIS not applicable for this client. aa5 Point of Care Testing: Blood Glucose: 13:49 Blood Glucose: 153 mg/dL; aa5 Ranges: Outcome: 14:37 ER care complete, transfer ordered by . rn 15:40 Transferred by ground EMS to [facility], Transfer form completed. aa5 X-rays sent w/ patient. Note: Report given to [facility] 15:40 Condition: stable 15:40 Instructed on the need for transfer, Demonstrated understanding of instructions, Instructions given to family. 15:58 Patient left the ED. ll1 Signatures: Dispatcher [employer] EDMS Clementine Tristan Irene, RN RN iw Jason Padgett MD MD rn Calderon, Audri, RN RN aa5 Bebeto Lopez RN RN ll1 Reid Ferrera, COLLETTE RN rs5 Corrections: (The following items were deleted from the chart) 14:57 14:30 BP 197 / 108; Pulse 64bpm; Resp 20bpm; Assisted; Pulse Ox 100% ET / Ventilator; [facility] 16:32 13:37 Chief complaint: EMS states: "Pt's daughter reported pt c/o bad headache and aa5 collapsed, pt was only breathing 8bpm upon our arrival and we intubated her". Pt was administered 10mg Etomidate, 70mg Rocuronium by EMS for intubation, EMS also attempted to administer 10 mg of labetalol FORM SETTER HELPER but IV infiltrated. aa5 16:34 16:34 No provider procedures requiring assistance completed. aa5 aa5 19:34 14:41 75 kg; Height 5 ft. 9 in.; BMI: 24.4; iw aa5 19:34 14:27 BP 197 / 108; Pulse 60bpm; Resp 20bpm; Assisted; Pulse Ox 100% ET / Ventilator; aa5 aa5 19:38 15:25 Bravo cath inserted, using sterile technique, 16 Fr., by spindle sander, balloon aa5 inflated, to gravity drainage, returned clear yellow urine. Patient tolerated well. aa5
--- NOTE | 2024-05-16 15:10 | RAD REPORT ---
EXAMINATION: ONE VIEW CHEST XR CLINICAL INDICATION: Female, 78 years old.,post intubation TECHNIQUE: Frontal chest projection is submitted. Examination is limited by patient positioning and t echnique. COMPARISON: 05/16/2024 FINDINGS: Endotracheal tube in place, with tip projecting 5.5 cm above the sharmaine. The lungs are somewhat hypoe choic inflated and clear. No pneumothorax or sizable effusion. The heart is normal in size. Mediastinal contours are unremarkable. IMPRESSION: Satisfactory endotracheal tube position. No acute intrathoracic abnormalities.
[2024-05-16] MEDS ORDERED: MANNITOL 25% 0 ML IV ONE ×2 (15:15→15:19)
[2024-05-16] MEDS ORDERED: NA CHLORIDE 0.9% 500 ML ONE (15:16)
[2024-05-16] MEDS ORDERED: MIDAZOLAM HCL 2 MG/2 ML INJ ONE (15:43)
[2024-05-16] MEDS ORDERED: MANNITOL 20% IV NR (16:00)
[2024-05-18 16:07] VITALS: BP 150/80; O2SAT 100
--- NOTE | 2024-05-20 12:10 | EKG ---
Test Date: 2024-05-16 Test Time: 13:42:41 Manager General: [place] MEASUREMENT RESULTS: Intervals: Rate: 61 SD: 136 QRSD: 84 QT: 432 QTc: 434 [place]: P: 75 SD: 136 QRS: 66 T: 75 INTERPRETIVE STATEMENTS: Normal sinus rhythm Normal ECG Compared to ECG 12/02/2016 18:57:52 Atrial abnormality no longer present Electronically Signed On 05-20-24 12:08:06 ROUGH PLANER TENDER by Tom Wallace
== END 2024-05-16 15:58 | disposition short-term general hospital (02) ==
LOC: ER 13:37
DX: S06.5X9A Traumatic subdural hemorrhage with loss of consciousness of unspecified duration, initial encounter (principal); I60.9 Nontraumatic subarachnoid hemorrhage, unspecified; G40.89 Other seizures; I10 Essential (primary) hypertension; E11.9 Type 2 diabetes mellitus without complications; E78.00 Pure hypercholesterolemia, unspecified; Z88.5 Allergy status to narcotic agent
CPT/HCPCS: 96365; 93005; 85025; 80048; 36415; 85610; 82947; 80076; 84484; 83880; 70450; 71250; 72125; 74176; 71045; 51702; 96375; 43753; 99291; 94002; J1953; J2250; J7040; J2150